=== PATIENT | female | born 1955 | race Caucasian/White ===

== ENCOUNTER 2019-12-21 15:22 | Outpatient (CLI) | payer OTHER, SELFPAY ==
[2019-12-21 15:41] LABS: Basophils Percent Auto 0.5 % (0.2-1.2); Eosinophils Absolute Auto 0.1 K/mm3 (0-0.3); Eosinophils Percent Auto 1.4 % (0-4.4); Hematocrit 36.9 % (37.0-47.0); Hemoglobin 12.1 g/dL (12.0-15.0); Immature Granulocyte Absolute 0.01 K/mm3 (0.00-0.031); Immature Granulocyte Percent A 0.2 % (0-0.5); Lymphocytes Absolute Auto 1.98 K/mm3 (0.9-3.2); Mean Corpuscular HGB Conc 32.8 g/dl (32-36); Mean Corpuscular Hemoglobin 31.8 pg (26-34); Mean Corpuscular Volume 97.1 fl (80-100); Mean Platelet Volume 10.4 fl (7.4-10.4); Monocytes Absolute Auto 0.5 K/mm3 (0.1-0.6); Monocytes Percent Auto 9.1 % (2.6-8.5); Neutrophils Absolute Auto 3.2 K/mm3 (1.3-6.7); Neutrophils Percent Auto 54.8 % (45.5-73.1); Platelet Count Result 175 k/mm3 (150-375); Red Cell Distribution Width 12.7 % (11.5-14.5); White Blood Count 5.8 K/mm3 (4.5-10.0)
[2019-12-21 16:55] LABS: Alanine Aminotransferase 15 U/L (4-35); Albumin Level 4.3 g/dL (3.5-5.1); Alkaline Phosphatase 64 U/L (38-126); Aspartate Amino Transferase 27 U/L (14-36); Bilirubin,Total 0.2 mg/dL (0.2-1.3); Blood Urea Nitrogen 17 mg/dL (7-17); Calcium 9.1 mg/dL (8.4-10.2); Carbon Dioxide 29 mmol/L (22-30); Chloride 105 mmol/L (98-107); Estimated Glomerular Filt Rate > 60; Glucose 111 mg/dL (65-105); Potassium 3.9 mmol/L (3.4-5.0); Sodium 139 mmol/L (137-145)
[2019-12-24 11:50] LABS: CA 27.29 12 U/mL (<38)
== END 2019-12-21 15:23 | disposition home or self-care (01) ==
LOC: ANHLAB 15:23
PROVIDERS: PCP Internal Medicine; Visit Provider Internal Medicine Hematology & Oncology
DX: C50.411 Malignant neoplasm of upper-outer quadrant of right female breast (principal); Z17.0 Estrogen receptor positive status [ER+]
CPT/HCPCS: 36415; 80053; 85025; 86300

== ENCOUNTER 2020-05-05 16:28 | Outpatient (CLI) | payer OTHER, SELFPAY ==
--- NOTE | ~2020-05-05 | XR_ITS ---
XR chest 2V DATE: 05/05/2020 16:51 INDICATION: Shortness of breath TECHNIQUE: PA and lateral views COMPARISON: 03/26/2017 portable AP chest 1112 hours FINDINGS: Left-sided dual-lead pacemaker device with leads overlying right atrium and right ventricle . Heart size is within normal range. There is no hilar or mediastinal enlargement. The lungs are hyperinflated but clear of infiltrate or consolidation. No pleural effusion, pulmonary vascular congestion or pneumothorax. Surgical clips are noted in right breast. Mild thoracic dextro scoliosis and lumbar levoscoliosis. Mild osteopenia is suggested. IMPRESSION: Bilateral hyperinflation; no active cardiopulmonary disease or significant change since Reviewed, dictated and finalized at location A. IMPRESSION: Bilateral hyperinflation; no active cardiopulmonary disease or sign ificant change since 03/26/2017
== END 2020-05-05 16:29 | disposition home or self-care (01) ==
PROVIDERS: PCP Internal Medicine
DX: R00.1 Bradycardia, unspecified (principal); I48.92 Unspecified atrial flutter; Z95.0 Presence of cardiac pacemaker; R06.02 Shortness of breath
CPT/HCPCS: 71046

== ENCOUNTER 2020-05-10 07:38 | Outpatient (CLI) | payer OTHER, SELFPAY ==
--- NOTE | 2020-05-11 17:20 | WPDPFTINT ---
PFT Interpretation PFT Interpretation: DOS: 05/10/2020 REQUESTING: Saúl Wolff DO REASON FOR TESTING: shortness of breath PULMONARY FUNCTION TESTS Results are reliable. No prior studies are available to compare. Spirometry: FEV1 is 84%, 2.14 L. FVC 84%, also normal. The FEV1% is normal. UCZ21-94% is 56%, decreased. No bronchodilator was given. Lung volumes: TLC is 90%, normal. RV is 98% normal. RV/TLC is increased consistent with air trapping. Increased airway resistance. Diffusion: DLCO 70%, mildly decreased. Flow volume loop: Normal. IMPRESSION: Normal spirometry with decreased small airways flows, air trapping which is consistent with an obstructive process, and mild diffusion impairment. No bronchodilator was given. This is a nonspecific pattern. The small airway pattern may reflect asthma. Trial of bronchodilator could be considered. Isolated mild decrease in diffusion may be due to anemia or other condition such as anemia, early ILD, collagen vascular disease with pulmonary vascular involvement or chronic thromboembolic disease. Riana James MD
== END 2020-05-10 07:39 | disposition home or self-care (01) ==
PROVIDERS: PCP Internal Medicine
DX: R00.1 Bradycardia, unspecified (principal); I48.92 Unspecified atrial flutter; R06.02 Shortness of breath; Z95.0 Presence of cardiac pacemaker
CPT/HCPCS: 94375; 94726; 94729

== ENCOUNTER 2020-08-15 07:15 | Outpatient (CLI) | payer OTHER, SELFPAY ==
--- NOTE | ~2020-08-15 | MM_ITS ---
EXAMINATION: MM screening leydi BI w jessica HISTORY: Screening mammogram TECHNIQUE: Craniocaudal and mediolateral oblique 3-D tomosynthesis images were obtained and synthetic 2-D images were generated. CAD analysis was submitted and interpreted. COMPARISON: 05/25/2019 bilateral digital screening mammogram 11/12/2018 diagnostic right digital mammogram 05/14/2018 bilateral diagnostic digital mammogram BREAST PARENCHYMAL COMPOSITION: There are scattered areas of fibroglandular density. FINDINGS: Status post right partial mastectomy for breast malignancy in 2017; surgical clips are note d in the upper outer quadrant of the right breast. There are benign calcifications of fat necrosis in the posterior upper right breast on MLO view. Status post left breast reduction in 2017. There is no evidence of suspicious mass, calcification, or interval architectural distortion to sugge st malignancy in either breast. There has been no suspicious interval change. IMPRESSION: 1. No mammographic evidence of malignancy. 2. Recommend routine screening mammography in one year. BI-RADS Category 2: Benign finding(s). Reviewed, dictated and finalized at location A. CLEANER
== END 2020-08-15 07:16 | disposition home or self-care (01) ==
PROVIDERS: PCP Internal Medicine; Visit Provider Internal Medicine Hematology & Oncology
DX: Z12.31 Encounter for screening mammogram for malignant neoplasm of breast (principal)
CPT/HCPCS: 77063; 77067

== ENCOUNTER 2020-09-09 07:30 | Outpatient (CLI) | payer OTHER, SELFPAY ==
[2020-09-09 07:57] LABS: Alanine Aminotransferase 31 U/L (4-35); Albumin Level 4.2 g/dL (3.5-5.1); Alkaline Phosphatase 70 U/L (38-126); Anion Gap 4 mmol/L (8-16); Aspartate Amino Transferase 39 U/L (14-36); Bilirubin,Total 0.6 mg/dL (0.2-1.3); Blood Urea Nitrogen 18 mg/dL (7-17); Carbon Dioxide 30 mmol/L (22-30); Chloride 106 mmol/L (98-107); Cholesterol 221 mg/dL (0-200); Estimated Glomerular Filt Rate > 60; Glucose 97 mg/dL (65-105); HDL Direct 67 mg/dL; Potassium 4.5 mmol/L (3.4-5.0); Sodium 140 mmol/L (137-145); Triglycerides 135 mg/dL (<150)
[2020-09-09 08:08] LABS: LDL Cholesterol Direct 119 mg/dL
[2020-09-09 08:38] LABS: Vitamin D 25 Hydroxy 47.4 ng/mL
== END 2020-09-09 07:31 | disposition home or self-care (01) ==
LOC: ANHLAB 07:31
PROVIDERS: PCP Internal Medicine; Visit Provider Nurse Practitioner
DX: E78.5 Hyperlipidemia, unspecified (principal); Z78.0 Asymptomatic menopausal state; Z51.81 Encounter for therapeutic drug level monitoring; Z79.899 Other long term (current) drug therapy
CPT/HCPCS: 36415; 80053; 80061; 82306

== ENCOUNTER 2020-09-25 13:31 | Outpatient (CLI) | payer OTHER, SELFPAY ==
[2020-09-25 13:45] LABS: Basophils Absolute Auto 0.1 K/mm3 (0.0-0.1); Basophils Percent Auto 0.8 % (0.2-1.2); Eosinophils Absolute Auto 0.1 K/mm3 (0-0.3); Eosinophils Percent Auto 1.5 % (0-4.4); Hematocrit 38.9 % (37.0-47.0); Hemoglobin 13.2 g/dL (12.0-15.0); Immature Granulocyte Absolute 0.01 K/mm3 (0.00-0.031); Immature Granulocyte Percent A 0.2 % (0-0.5); Lymphocytes Percent Auto 32.1 % (18.3-44.2); Mean Corpuscular HGB Conc 33.9 g/dl (32-36); Mean Corpuscular Hemoglobin 31.4 pg (26-34); Mean Corpuscular Volume 92.4 fl (80-100); Mean Platelet Volume 10.2 fl (7.4-10.4); Monocytes Absolute Auto 0.4 K/mm3 (0.1-0.6); Monocytes Percent Auto 7.1 % (2.6-8.5); Neutrophils Absolute Auto 3.4 K/mm3 (1.3-6.7); Neutrophils Percent Auto 58.3 % (45.5-73.1); Platelet Count Result 229 k/mm3 (150-375); Red Blood Count 4.21 M/mm3 (4.2-5.4); Red Cell Distribution Width 13.1 % (11.5-14.5); White Blood Count 5.9 K/mm3 (4.5-10.0)
[2020-09-25 16:33] LABS: Alanine Aminotransferase 25 U/L (4-35); Albumin Level 4.3 g/dL (3.5-5.1); Alkaline Phosphatase 81 U/L (38-126); Anion Gap 5 mmol/L (8-16); Aspartate Amino Transferase 33 U/L (14-36); Bilirubin,Total 0.3 mg/dL (0.2-1.3); Blood Urea Nitrogen 17 mg/dL (7-17); Calcium 9.6 mg/dL (8.4-10.2); Carbon Dioxide 31 mmol/L (22-30); Chloride 104 mmol/L (98-107); Estimated Glomerular Filt Rate > 60; Glucose 97 mg/dL (65-105); Potassium 3.6 mmol/L (3.4-5.0); Sodium 140 mmol/L (137-145)
[2020-09-27 11:44] LABS: CA 27.29 19 U/mL (<38)
== END 2020-09-25 13:32 | disposition home or self-care (01) ==
PROVIDERS: PCP Internal Medicine; Visit Provider Internal Medicine Hematology & Oncology
DX: C50.411 Malignant neoplasm of upper-outer quadrant of right female breast (principal); Z17.0 Estrogen receptor positive status [ER+]
CPT/HCPCS: 36415; 80053; 85025; 86300

== ENCOUNTER 2020-10-03 07:40 | Outpatient (CLI) | payer OTHER, SELFPAY ==
--- NOTE | ~2020-10-03 | DEXA_ITS ---
Bone Density Report Name: Shy Ayers Age: 65 Sex: Female Ethnicity: White Date of : 1955 Indication: postmenopausal; cancer; hysterectomy; Referring Provider: Юлия Patel Study: Bone densitometry was performed. Exam Date: October 03, 2020 Accession number: [id number] There is hypertrophic degenerative change of the lumbar spine, which results in higher than expected spine bone mineral density measurements. These spine BMD and T score and Z score measurements are not reflective of the patient's true general bone mineral density. Bone Density: Region BMD T-score Z-score Classification AP Spine (L2, L3) 1.093 0.3 2.3 Normal Femoral Neck (Left) 0.816 -0.3 1.3 Normal Total Hip (Left) 0.947 0.0 1.4 Normal Total Hip Bilateral Avg 0.943 0.0 1.4 Normal Femoral Neck (Right) 0.813 -0.3 1.3 Normal Total Hip (Right) 0.937 0.0 1.3 Normal World Health Organization criteria for BMD impression classify patients as: Normal (T-score at or above -1.0), Osteopenia (T-score between -1.0 and -2.5), or Osteoporosis (T-score at or below -2.5). 10-year Fracture Risk: FRAX not reported because: All T-scores for Spine Total, Hip Total, Femoral Neck at or above -1.0 Previous Exams: Region Exam Age BMD T-score BMD Change BMD Change Date g/cm2 vs Baseline vs Previous AP Spine(L2, L3) 10/03/2020 65 1.093 0.3 -0.145(-11.7%) -0.007(-0.7%) 07/10/2018 62 1.100 0.4 -0.137(-11.1%) -0.137(-11.1%) 09/29/2002 47 1.238 1.6 Total Hip(Left) 10/03/2020 65 0.947 0.0 -0.132(-12.2%) -0.001(-0.1%) 07/10/2018 62 0.949 0.1 -0.131(-12.1%) -0.131(-12.1%) 09/29/2002 47 1.079 1.1 Total Hip(Right) 10/03/2020 65 0.937 0.0 -0.084(-8.3%)# -0.015(-1.6%) 07/10/2018 62 0.952 0.1 -0.070(-6.8%)# -0.070(-6.8%)# 09/29/2002 47 1.021 0.7 *Denotes significance at 95% confidence level, LSC for AP Spine = 0.022 g/cm2, LSC for Total Hip = 0.027 g/cm2 Clinical Information Provided by Patient: Has used the following medications: Vitamin D, Calcium Has the following medical conditions: Cancer, Hysterectomy Patient maximum height was 69 Menopause Age: 42 No regular weight bearing exercise Drinks caffeinated beverages Onset of menses at age 10 Number of children 3 Impression: The patient has normal bone mass. No significant bone loss was observed. 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
== END 2020-10-03 07:41 | disposition home or self-care (01) ==
LOC: ANHIMG 07:43
PROVIDERS: PCP Internal Medicine; Visit Provider Nurse Practitioner
DX: D05.11 Intraductal carcinoma in situ of right breast (principal); Z78.0 Asymptomatic menopausal state
CPT/HCPCS: 77080

== ENCOUNTER 2021-02-24 07:02 | Outpatient (CLI) | payer OTHER, SELFPAY ==
[2021-02-24 07:36] LABS: Cholesterol 244 mg/dL (0-200); HDL Direct 66 mg/dL; Triglycerides 127 mg/dL (<150)
[2021-02-24 07:47] LABS: LDL Cholesterol Direct 109 mg/dL
== END 2021-02-24 07:03 | disposition home or self-care (01) ==
PROVIDERS: PCP Internal Medicine; Visit Provider Nurse Practitioner
DX: E78.5 Hyperlipidemia, unspecified (principal)
CPT/HCPCS: 36415; 80061

== ENCOUNTER 2021-06-25 14:31 | Outpatient (CLI) | payer OTHER, SELFPAY ==
[2021-06-25 14:44] LABS: Basophils Absolute Auto 0.1 K/mm3 (0.0-0.1); Eosinophils Absolute Auto 0.2 K/mm3 (0-0.3); Eosinophils Percent Auto 2.4 % (0-4.4); Hematocrit 40.8 % (37.0-47.0); Hemoglobin 13.6 g/dL (12.0-15.0); Immature Granulocyte Absolute 0.01 K/mm3 (0.00-0.031); Immature Granulocyte Percent A 0.2 % (0-0.5); Lymphocytes Absolute Auto 1.89 K/mm3 (0.9-3.2); Lymphocytes Percent Auto 30.1 % (18.3-44.2); Mean Corpuscular HGB Conc 33.3 g/dl (32-36); Mean Corpuscular Hemoglobin 31.1 pg (26-34); Mean Corpuscular Volume 93.2 fl (80-100); Mean Platelet Volume 10.3 fl (7.4-10.4); Monocytes Absolute Auto 0.5 K/mm3 (0.1-0.6); Monocytes Percent Auto 8.3 % (2.6-8.5); Neutrophils Absolute Auto 3.6 K/mm3 (1.3-6.7); Platelet Count Result 237 k/mm3 (150-375); Red Blood Count 4.38 M/mm3 (4.2-5.4); Red Cell Distribution Width 12.6 % (11.5-14.5); White Blood Count 6.3 K/mm3 (4.5-10.0)
[2021-06-25 16:42] LABS: Alanine Aminotransferase 27 U/L (4-35); Albumin Level 4.9 g/dL (3.5-5.1); Alkaline Phosphatase 83 U/L (38-126); Anion Gap 8 mmol/L (8-16); Aspartate Amino Transferase 35 U/L (14-36); Bilirubin,Total 0.5 mg/dL (0.2-1.3); Blood Urea Nitrogen 19 mg/dL (7-17); Calcium 10.3 mg/dL (8.4-10.2); Carbon Dioxide 29 mmol/L (22-30); Chloride 105 mmol/L (98-107); Estimated Glomerular Filt Rate > 60; Glucose 96 mg/dL (65-110); Sodium 142 mmol/L (137-145)
[2021-06-28 04:42] LABS: CA 15-3 10 U/mL (<32)
== END 2021-06-25 14:32 | disposition home or self-care (01) ==
LOC: ANHLAB 14:32
PROVIDERS: PCP Internal Medicine; Visit Provider Internal Medicine Hematology & Oncology
DX: C50.411 Malignant neoplasm of upper-outer quadrant of right female breast (principal); Z17.0 Estrogen receptor positive status [ER+]
CPT/HCPCS: 36415; 80053; 85025; 86300

== ENCOUNTER 2021-08-21 07:22 | Outpatient (CLI) | payer OTHER, SELFPAY ==
--- NOTE | ~2021-08-21 | MM_ITS ---
EXAMINATION: MM screening leydi BI w jessica HISTORY: Screening TECHNIQUE: Craniocaudal and mediolateral oblique 3-D tomosynthesis images were obtained and synthetic 2-D images were generated. CAD analysis was submitted and interpreted. COMPARISON: Comparison to multiple prior studies sequentially, with oldest reviewed study dated 12/16. BREAST PARENCHYMAL COMPOSITION: Breast composed of scattered areas of fibroglandular density FINDINGS: There are surgical changes in the right breast from previous lumpectomy. There is no eviden ce of suspicious mass, calcification, or architectural distortion to suggest malignancy in either hsanna ast. There has been no suspicious interval change. IMPRESSION: 1. No mammographic evidence of malignancy. 2. Recommend routine screening mammography in one year. BI-RADS Category 1: Negative Reviewed, dictated and finalized at location A. NESS EDITOR
== END 2021-08-21 07:23 | disposition home or self-care (01) ==
LOC: ANHIMG 07:26
PROVIDERS: PCP Internal Medicine; Visit Provider Internal Medicine Hematology & Oncology
DX: Z12.31 Encounter for screening mammogram for malignant neoplasm of breast (principal)
CPT/HCPCS: 77063; 77067

== ENCOUNTER 2021-10-05 07:46 | Outpatient (CLI) | payer OTHER, SELFPAY ==
[2021-10-05 10:05] LABS: Cholesterol 193 mg/dL (0-200); HDL Direct 78 mg/dL; Triglycerides 86 mg/dL (<150)
[2021-10-05 10:17] LABS: LDL Cholesterol Direct 86 mg/dL
[2021-10-05 10:21] LABS: Vitamin D 25 Hydroxy 44.5 ng/mL
== END 2021-10-05 07:47 | disposition home or self-care (01) ==
PROVIDERS: Nurse Practitioner; PCP Internal Medicine; Visit Provider Internal Medicine Hematology & Oncology
DX: Z13.21 Encounter for screening for nutritional disorder (principal); E78.5 Hyperlipidemia, unspecified
CPT/HCPCS: 36415; 80061; 82306

== ENCOUNTER 2022-05-27 14:30 | Outpatient (CLI) | payer OTHER, SELFPAY ==
--- NOTE | 2022-05-27 | ECHO_ITS ---
Patient Info Name: Shy Ayers Age: 66 years : 1955 Gender: Female Ht: 69 in Wt: 155 lbs BSA: 1.85 m2 HR: 70 bpm BP: 154 / 90 mmHg Heart Rhythm: Sinus Rhythm Technical Quality: Fair Exam Date: 05/27/2022 2:55 PM Exam Location: [facility] Patient Status: Outpatient Admit Date: 05/27/2022 Staff Ordering Physician: Alfred Figueroa MD Shopper Insights Manager: Mildred Medina RDCS Attending Provider: Alfred Figueroa MD Exam Type: CA echo doppler color flow Study Info Indications - bradycardia, a-flutter, syncope, vasquez Complete two-dimensional, color flow and Doppler transthoracic echocardiogram is performed. Summary 1. Complete two-dimensional, color flow and Doppler transthoracic echocardiogram is performed. 2. Left ventricular chamber dimension is normal. 3. Left ventricular systolic function is normal, estimated at 60-65%. 4. There is mildly increased left ventricular wall thickness. 5. The left ventricular diastolic function is grade I diastolic dysfunction. 6. The mitral valve has thickened leaflets. Mild anterior and mild posterior mitral valve leaflet prolapse. 7. There is trace mitral valve regurgitation. 8. There is trace tricuspid valve regurgitation. 9. No pulmonary hypertension, estimated pulmonary arterial systolic pressure is 30 mmHg. Left Ventricle Left ventricular chamber dimension is normal. Left ventricular systolic function is normal, estimated at 60-65%. There is mildly increased left ventricular wall thickness. The left ventricular diastolic function is grade I diastolic dysfunction. Right Ventricle Right ventricular chamber dimension is normal. Right ventricular systolic function is normal. Linear artifact in right ventricle suggestive of catheter(s), pacemaker lead(s), or ICD lead(s). Left Atria Left atrial chamber dimension is normal. Right Atria Right atrial chamber dimension is normal. Linear artifact in the right atrium suggestive of catheter(s), pacemaker lead(s), or ICD lead(s). Aortic Valve The aortic valve is trileaflet. There is mild aortic valve sclerosis. There is no aortic valve stenosis. There is no aortic valve regurgitation. Pulmonic Valve The pulmonic valve is not well visualized. There is trace pulmonic regurgitation. Mitral Valve The mitral valve has thickened leaflets. Mild anterior and mild posterior mitral valve leaflet prolapse. There is trace mitral valve regurgitation. The mitral valve annulus is mildly calcified. Tricuspid Valve The tricuspid valve leaflets are normal. There is trace tricuspid valve regurgitation. No pulmonary hypertension, estimated pulmonary arterial systolic pressure is 30 mmHg. Pericardium/Pleural The pericardium appears normal. There is trivial pericardial effusion. Inferior Vena Cava Normal inferior vena cava with >50% collapse upon inspiration consistent with normal right atrial pressure, 5 mmHg. Aorta The aortic root size at the sinus of Valsalva is normal. Left Ventricular Outflow Tract Name Value Normal LVOT 2D LVOT Diameter 2.1 cm LVOT Doppler LVOT Peak Gradient
== END 2022-05-27 14:31 | disposition home or self-care (01) ==
LOC: ANHCARD 14:34
PROVIDERS: PCP Internal Medicine
DX: R00.1 Bradycardia, unspecified (principal); Z95.0 Presence of cardiac pacemaker; I48.92 Unspecified atrial flutter; R55 Syncope and collapse; R06.09 Other forms of dyspnea; R06.02 Shortness of breath; R00.2 Palpitations
CPT/HCPCS: 93306

== ENCOUNTER 2022-06-25 13:44 | Outpatient (CLI) | payer OTHER, SELFPAY ==
[2022-06-25 13:59] LABS: Basophils Percent Auto 0.7 % (0.2-1.2); Eosinophils Absolute Auto 0.1 K/mm3 (0-0.3); Eosinophils Percent Auto 1.5 % (0-4.4); Hematocrit 40.8 % (37.0-47.0); Hemoglobin 13.5 g/dL (12.0-15.0); Immature Granulocyte Absolute 0.01 K/mm3 (0.00-0.031); Immature Granulocyte Percent A 0.2 % (0-0.5); Lymphocytes Percent Auto 34.5 % (18.3-44.2); Mean Corpuscular HGB Conc 33.1 g/dl (32-36); Mean Corpuscular Hemoglobin 31.3 pg (26-34); Mean Corpuscular Volume 94.4 fl (80-100); Mean Platelet Volume 9.9 fl (7.4-10.4); Monocytes Absolute Auto 0.5 K/mm3 (0.1-0.6); Monocytes Percent Auto 8.7 % (2.6-8.5); Neutrophils Percent Auto 54.4 % (45.5-73.1); Platelet Count Result 250 k/mm3 (150-375); Red Blood Count 4.32 M/mm3 (4.2-5.4); Red Cell Distribution Width 12.8 % (11.5-14.5); White Blood Count 5.5 K/mm3 (4.5-10.0)
[2022-06-25 14:41] LABS: Alanine Aminotransferase 33 U/L (6-35); Albumin Level 5.1 g/dL (3.5-5.1); Alkaline Phosphatase 99 U/L (38-126); Anion Gap 11 mmol/L (8-16); Aspartate Amino Transferase 43 U/L (14-36); Bilirubin,Total 0.4 mg/dL (0.2-1.3); Blood Urea Nitrogen 16 mg/dL (7-17); Calcium 9.6 mg/dL (8.4-10.2); Carbon Dioxide 29 mmol/L (22-30); Chloride 103 mmol/L (98-107); Estimated Glomerular Filt Rate > 60; Glucose 73 mg/dL (65-110); Potassium 3.6 mmol/L (3.4-5.0); Sodium 143 mmol/L (137-145)
[2022-06-28 04:14] LABS: CA 15-3 10 U/mL (<32)
== END 2022-06-25 13:45 | disposition home or self-care (01) ==
PROVIDERS: PCP Internal Medicine; Visit Provider Internal Medicine Hematology & Oncology
DX: C50.411 Malignant neoplasm of upper-outer quadrant of right female breast (principal); Z17.0 Estrogen receptor positive status [ER+]
CPT/HCPCS: 36415; 80053; 85025; 86300

== ENCOUNTER 2022-09-07 07:12 | Outpatient (CLI) | payer OTHER, SELFPAY ==
[2022-09-07 07:37] LABS: Alanine Aminotransferase 26 U/L (6-35); Albumin Level 4.5 g/dL (3.5-5.1); Alkaline Phosphatase 118 U/L (38-126); Anion Gap 6 mmol/L (8-16); Aspartate Amino Transferase 34 U/L (14-36); Bilirubin,Total 0.5 mg/dL (0.2-1.3); Blood Urea Nitrogen 9 mg/dL (7-17); Calcium 9.4 mg/dL (8.4-10.2); Carbon Dioxide 30 mmol/L (22-30); Chloride 104 mmol/L (98-107); Cholesterol 170 mg/dL (0-200); Estimated Glomerular Filt Rate > 60; Glucose 95 mg/dL (65-110); HDL Direct 60 mg/dL; Potassium 4.3 mmol/L (3.4-5.0); Sodium 140 mmol/L (137-145); Triglycerides 108 mg/dL (<150)
[2022-09-07 07:48] LABS: LDL Cholesterol Direct 68 mg/dL
[2022-09-07 09:14] LABS: Vitamin D 25 Hydroxy 36.1 ng/mL
== END 2022-09-07 07:13 | disposition home or self-care (01) ==
LOC: ANHLAB 07:14
PROVIDERS: PCP Internal Medicine; Visit Provider Nurse Practitioner
DX: E78.5 Hyperlipidemia, unspecified (principal); Z13.21 Encounter for screening for nutritional disorder
CPT/HCPCS: 36415; 80053; 80061; 82306

== ENCOUNTER 2022-09-10 07:17 | Outpatient (CLI) | payer OTHER, SELFPAY ==
--- NOTE | ~2022-09-10 | MM_ITS ---
EXAMINATION: MM screening leydi BI w jessica HISTORY: Screening mammogram, history of right breast cancer TECHNIQUE: Craniocaudal and mediolateral oblique 3-D tomosynthesis images were obtained and synthetic 2-D images were generated. CAD analysis was submitted and interpreted. COMPARISON: 08/21/2021, 08/15/2020, 05/25/2019, 11/12/2018 BREAST PARENCHYMAL COMPOSITION: There are scattered areas of fibroglandular density. FINDINGS: There are stable lumpectomy changes of the right breast. No suspicious mass, calcification, or architectural distortion are identified in either breast to suggest malignancy. There has been no suspicious interval change. IMPRESSION: 1. No mammographic evidence of malignancy. 2. Recommend routine screening mammography in one year. BI-RADS Category 2: Benign finding(s). Reviewed, dictated and finalized at location A. ORIZER OPERATOR
== END 2022-09-10 07:18 | disposition home or self-care (01) ==
LOC: ANHIMG 07:18
PROVIDERS: PCP Internal Medicine; Visit Provider Internal Medicine Hematology & Oncology
DX: Z12.31 Encounter for screening mammogram for malignant neoplasm of breast (principal)
CPT/HCPCS: 77063; 77067

== ENCOUNTER 2023-04-16 07:03 | Outpatient (CLI) | payer OTHER, SELFPAY ==
[2023-04-16 09:07] LABS: Alanine Aminotransferase 23 U/L (6-35); Albumin Level 4.5 g/dL (3.5-5.1); Alkaline Phosphatase 76 U/L (38-126); Anion Gap 6 mmol/L (8-16); Aspartate Amino Transferase 33 U/L (14-36); Bilirubin,Total 0.5 mg/dL (0.2-1.3); Blood Urea Nitrogen 13 mg/dL (7-17); Calcium 9.7 mg/dL (8.4-10.2); Carbon Dioxide 30 mmol/L (22-30); Chloride 104 mmol/L (98-107); Cholesterol 184 mg/dL (0-200); Estimated Glomerular Filt Rate > 60; Glucose 81 mg/dL (65-110); HDL Direct 80 mg/dL; Potassium 4.2 mmol/L (3.4-5.0); Sodium 140 mmol/L (137-145); Triglycerides 103 mg/dL (<150)
[2023-04-16 09:19] LABS: LDL Cholesterol Direct 78 mg/dL
== END 2023-04-16 07:04 | disposition home or self-care (01) ==
PROVIDERS: PCP Family Medicine; Visit Provider Nurse Practitioner
DX: E78.5 Hyperlipidemia, unspecified (principal)
CPT/HCPCS: 36415; 80053; 80061

== ENCOUNTER 2023-06-25 13:42 | Outpatient (CLI) | payer OTHER, SELFPAY ==
[2023-06-25 14:04] LABS: Basophils Absolute Auto 0.1 K/mm3 (0.0-0.1); Basophils Percent Auto 1.1 % (0.2-1.2); Eosinophils Absolute Auto 0.1 K/mm3 (0-0.3); Eosinophils Percent Auto 1.6 % (0-4.4); Hematocrit 39.7 % (37.0-47.0); Hemoglobin 13.2 g/dL (12.0-15.0); Immature Granulocyte Absolute 0.01 K/mm3 (0.00-0.031); Immature Granulocyte Percent A 0.2 % (0-0.5); Lymphocytes Absolute Auto 2.09 K/mm3 (0.9-3.2); Lymphocytes Percent Auto 34.1 % (18.3-44.2); Mean Corpuscular HGB Conc 33.2 g/dl (32-36); Mean Corpuscular Hemoglobin 31.6 pg (26-34); Mean Platelet Volume 9.8 fl (7.4-10.4); Monocytes Absolute Auto 0.4 K/mm3 (0.1-0.6); Monocytes Percent Auto 6.9 % (2.6-8.5); Neutrophils Absolute Auto 3.4 K/mm3 (1.3-6.7); Neutrophils Percent Auto 56.1 % (45.5-73.1); Platelet Count Result 259 k/mm3 (150-375); Red Blood Count 4.18 M/mm3 (4.2-5.4); Red Cell Distribution Width 12.7 % (11.5-14.5); White Blood Count 6.1 K/mm3 (4.5-10.0)
[2023-06-25 17:12] LABS: Alanine Aminotransferase 26 U/L (6-35); Albumin Level 4.7 g/dL (3.5-5.1); Alkaline Phosphatase 84 U/L (38-126); Anion Gap 7 mmol/L (8-16); Aspartate Amino Transferase 36 U/L (14-36); Bilirubin,Total 0.5 mg/dL (0.2-1.3); Blood Urea Nitrogen 18 mg/dL (7-17); Calcium 9.9 mg/dL (8.4-10.2); Carbon Dioxide 30 mmol/L (22-30); Chloride 102 mmol/L (98-107); Estimated Glomerular Filt Rate 55; Glucose 97 mg/dL (65-110); Potassium 3.9 mmol/L (3.4-5.0); Sodium 139 mmol/L (137-145)
[2023-06-28 06:02] LABS: CA 15-3 10 U/mL (<32)
== END 2023-06-25 13:43 | disposition home or self-care (01) ==
PROVIDERS: PCP Family Medicine; Visit Provider Internal Medicine Hematology & Oncology
DX: C50.411 Malignant neoplasm of upper-outer quadrant of right female breast (principal); Z17.0 Estrogen receptor positive status [ER+]
CPT/HCPCS: 36415; 80053; 85025; 86300

== ENCOUNTER 2023-07-01 08:26 | Outpatient (CLI) | payer OTHER, SELFPAY ==
[2023-07-01 10:54] LABS: Appearance Urine Clear (Clear); Bacteria Urine None Seen /hpf; Bilirubin Urine Negative (Negative); Blood Urine Negative (Negative); Color Urine Yellow (Yellow); Glucose Urine UA Negative (Negative); Ketones Urine Negative (Negative); Leukocyte Esterase Ur Trace LEU/UL (NEGATIVE); Need Manual Microscopic Reviewed; Nitrate Urine Negative (Negative); Non Pathogenic Casts 0-2; Protein Urine Negative (Negative); RBC Urine 0-2 /hpf (0-2); Specific Grav Ur 1.004 (1.001-1.035); Squamous Epithelial Cell Urine None seen /hpf (Few); Urobilinogen Urine 0.2 mg/dL (<2.0); WBC Urine 0-5 /hpf (0-3); pH Urine 6.5 (5.0-9.0)
[2023-07-01 10:55] LABS: Add Urine Microscopic? YES
== END 2023-07-01 08:27 | disposition home or self-care (01) ==
LOC: ANHLAB 08:28
PROVIDERS: PCP Family Medicine; Visit Provider Internal Medicine Hematology & Oncology
DX: M54.50 Low back pain, unspecified (principal)
CPT/HCPCS: 81001

== ENCOUNTER 2023-12-15 13:49 | Outpatient (CLI) | payer MEDICARE, SELFPAY ==
--- NOTE | ~2023-12-15 | MM_ITS ---
EXAMINATION: MM screening leydi BI w jessica HISTORY: Screening mammogram TECHNIQUE: Craniocaudal and mediolateral oblique 3-D tomosynthesis images were obtained and synthetic 2-D images were generated. CAD analysis was submitted and interpreted. COMPARISON: 09/10/2022, 08/21/2021 bilateral screening mammogram examinations BREAST PARENCHYMAL COMPOSITION: There are scattered areas of fibroglandular density. FINDINGS: Status post right partial mastectomy and radiotherapy for breast cancer. Right breast biopsy marker. Left breast biopsy marker. There is no evidence of suspicious mass, calcification, or new architectural distortion to suggest m alignancy in either breast. There has been no suspicious interval change. IMPRESSION: 1. Status post right partial mastectomy and radiotherapy for breast cancer. No mammographic evidence of malignancy. 2. Recommend routine screening mammography in one year. BI-RADS Category 2: Benign finding(s). Reviewed, dictated and finalized at location A.
--- NOTE | ~2023-12-15 | DEXA_ITS ---
Bone Density Report Name: BRIGID MUELLER Age: 68 Sex: Female Ethnicity: White Date of : 1955 Indication: postmenopausal; screening for osteoporosis; height loss; cancer; asthma or emphysema; hysterectomy; Referring Provider: FLORENTINO WOO Study: Bone densitometry was performed. Exam Date: December 15, 2023 Accession number: [id number] Bone Density: Region BMD T-score Z-score Classification AP Spine(L2, L3, L4) 1.114 0.3 2.5 Normal Femoral Neck (Left) 0.754 -0.9 1.0 Normal Total Hip (Left) 0.836 -0.9 0.7 Normal Femoral Neck (Right) 0.771 -0.7 1.1 Normal Total Hip (Right) 0.837 -0.9 0.7 Normal Total Hip Mean 0.836 -0.9 0.7 Normal World Health Organization criteria for BMD impression classify patients as: Normal (T-score at or above -1.0), Osteopenia (T-score between -1.0 and -2.5), or Osteoporosis (T-score at or below -2.5). 10-year Fracture Risk: FRAX not reported because: All T-scores for Spine Total, Hip Total, Femoral Neck at or above -1.0 Previous Exams: Region Exam Age BMD T-score BMD Change BMD Change Date g/cm2 vs Baseline vs Previous Total Hip(Left) 12/15/2023 68 0.836 -0.9 -0.112 (-11.9% -0.111 (-11.7% 10/03/2020 65 0.947 0.0 -0.001 (-0.1%) -0.001 (-0.1%) 07/10/2018 62 0.949 0.1 Total Hip(Right) 12/15/2023 68 0.837 -0.9 -0.115 (-12.1% -0.101 (-10.7% 10/03/2020 65 0.937 0.0 -0.015 (-1.6%) -0.015 (-1.6%) 07/10/2018 62 0.952 0.1 *Denotes significance at 95% confidence level, LSC for Total Hip = 0.027 g/cm2 # Denotes dissimilar scan types or analysis methods Clinical Information Provided by Patient: Has used the following medications: MULTI Has the following medical conditions: Asthma or Emphysema, Cancer, Hysterectomy Patient maximum height was 69 Menopause Age: 42 No regular weight bearing exercise Drinks caffeinated beverages Onset of menses at age 9 Number of children 3 Impression: The patient has normal bone mass. No significant bone loss was observed. Discussion: BONE DENSITY IS ABOVE THE MINIMUM DESIRABLE LEVEL AT ALL SKELETAL SITES TESTED. This patient?s bone mineral density is above the minimum desirable level (T-score -1.0 or better) at all sites measured. The patient should follow a healthful lifestyle (good nutrition with adequate calcium and vitamin D, and appropriate weight-bearing exercise). Follow-Up: Consider repeating this study in 5 years or sooner if there is some new clinical indication. Repo
== END 2023-12-15 13:50 | disposition home or self-care (01) ==
LOC: ANHIMG 13:52
PROVIDERS: PCP Family Medicine; Visit Provider Internal Medicine Hematology & Oncology
DX: Z12.31 Encounter for screening mammogram for malignant neoplasm of breast (principal); M85.89 Other specified disorders of bone density and structure, multiple sites; Z78.0 Asymptomatic menopausal state
CPT/HCPCS: 77063; 77067; 77080

== ENCOUNTER 2024-02-03 08:24 | Outpatient (CLI) | payer MEDICARE, SELFPAY ==
[2024-02-03 08:08] LABS: Hematocrit 40.9 % (37.0-47.0); Hemoglobin 13.6 g/dL (12.0-15.0); Mean Corpuscular HGB Conc 33.3 g/dl (32-36); Mean Corpuscular Hemoglobin 31.9 pg (26-34); Mean Platelet Volume 9.9 fl (7.4-10.4); Platelet Count Result 226 k/mm3 (150-375); Red Blood Count 4.26 M/mm3 (4.2-5.4); Red Cell Distribution Width 12.7 % (11.5-14.5); White Blood Count 4.5 K/mm3 (4.5-10.0)
[2024-02-03 08:31] LABS: Alanine Aminotransferase 21 U/L (6-35); Albumin Level 4.7 g/dL (3.5-5.1); Alkaline Phosphatase 75 U/L (38-126); Anion Gap 6 mmol/L (4-12); Aspartate Amino Transferase 31 U/L (14-36); Bilirubin,Total 0.7 mg/dL (0.2-1.3); Blood Urea Nitrogen 14 mg/dL (7-17); Calcium 9.8 mg/dL (8.4-10.2); Carbon Dioxide 27 mmol/L (22-30); Chloride 107 mmol/L (98-107); Cholesterol 180 mg/dL (0-200); Estimated Glomerular Filt Rate > 60; Glucose 95 mg/dL (65-110); HDL Direct 83 mg/dL; Potassium 4.3 mmol/L (3.4-5.0); Sodium 140 mmol/L (137-145); Triglycerides 84 mg/dL (<150)
[2024-02-03 08:42] LABS: LDL Cholesterol Direct 75 mg/dL
== END 2024-02-03 08:25 | disposition home or self-care (01) ==
PROVIDERS: PCP Family Medicine; Visit Provider Family Medicine
DX: E78.5 Hyperlipidemia, unspecified (principal); Z00.00 Encounter for general adult medical examination without abnormal findings
CPT/HCPCS: 36415; 80053; 80061; 85027

== ENCOUNTER 2024-08-11 07:09 | Outpatient (CLI) | payer MEDICARE, SELFPAY ==
[2024-08-11 07:54] LABS: Hematocrit 39.6 % (37.0-47.0); Hemoglobin 13.3 g/dL (12.0-15.0); Mean Corpuscular HGB Conc 33.6 g/dl (32-36); Mean Corpuscular Hemoglobin 31.9 pg (26-34); Mean Platelet Volume 10.2 fl (7.4-10.4); Platelet Count Result 212 k/mm3 (150-375); Red Blood Count 4.17 M/mm3 (4.2-5.4); Red Cell Distribution Width 12.7 % (11.5-14.5)
[2024-08-11 08:08] LABS: Alanine Aminotransferase 17 U/L (6-35); Albumin Level 4.4 g/dL (3.5-5.1); Alkaline Phosphatase 74 U/L (38-126); Anion Gap 4 mmol/L (4-12); Aspartate Amino Transferase 29 U/L (14-36); Bilirubin,Total 0.5 mg/dL (0.2-1.3); Blood Urea Nitrogen 14 mg/dL (7-17); CRP < 0.5 mg/dL (<1.0); Calcium 9.8 mg/dL (8.4-10.2); Carbon Dioxide 29 mmol/L (22-30); Chloride 107 mmol/L (98-107); Estimated Glomerular Filt Rate > 60; Glucose 90 mg/dL (65-110); Potassium 4.1 mmol/L (3.4-5.0); Sodium 140 mmol/L (137-145)
[2024-08-11 08:32] LABS: Erythrocyte Sedimentation Rate 13 mm/hr (0-20)
== END 2024-08-11 07:10 | disposition home or self-care (01) ==
LOC: ANHLAB 07:12
PROVIDERS: PCP Family Medicine; Visit Provider Family Medicine
DX: E78.5 Hyperlipidemia, unspecified (principal); I48.92 Unspecified atrial flutter; R53.83 Other fatigue; Z95.0 Presence of cardiac pacemaker; Z85.3 Personal history of malignant neoplasm of breast
CPT/HCPCS: 36415; 80053; 84443; 85027; 85652; 86140

== ENCOUNTER 2024-09-21 14:56 | Outpatient (CLI) | payer MEDICARE, SELFPAY ==
[2024-09-21 15:07] LABS: Basophils Absolute Auto 0.1 K/mm3 (0.0-0.1); Basophils Percent Auto 0.8 % (0.2-1.2); Eosinophils Absolute Auto 0.1 K/mm3 (0-0.3); Eosinophils Percent Auto 1.3 % (0-4.4); Hematocrit 38.9 % (37.0-47.0); Hemoglobin 13.1 g/dL (12.0-15.0); Immature Granulocyte Absolute 0.01 K/mm3 (0.00-0.031); Immature Granulocyte Percent A 0.2 % (0-0.5); Lymphocytes Absolute Auto 2.38 K/mm3 (0.9-3.2); Lymphocytes Percent Auto 39.9 % (18.3-44.2); Mean Corpuscular HGB Conc 33.7 g/dl (32-36); Mean Corpuscular Volume 94.9 fl (80-100); Mean Platelet Volume 9.8 fl (7.4-10.4); Monocytes Absolute Auto 0.6 K/mm3 (0.1-0.6); Monocytes Percent Auto 9.9 % (2.6-8.5); Neutrophils Absolute Auto 2.9 K/mm3 (1.3-6.7); Neutrophils Percent Auto 47.9 % (45.5-73.1); Platelet Count Result 227 k/mm3 (150-375); Red Cell Distribution Width 12.4 % (11.5-14.5)
--- OUTSIDE RECORDS SUMMARY | 2024-09-21 15:27 | XMS_ITS | Patient Health Summary ---
Author Organization [facility] Address [address] [place] [address] Care Team Providers Care Communication Center Operator Name Role Phone Babar Steiner MD Primary Care Provider [phone] Note from [facility],non-owned Affiliates and Associated Physician Practices is amultiple site organization consisting of ambulatory clinics and hospital sitesin [place], [place], [place] and [place]. This disclosure is being madepursuant to the Care Everywhere program and may not contain all information available regarding this patient. Last updated 18.[facility] Social History Tobacco Use Types Packs/Day Years Used Date Smoking Tobacco: Never Assessed Sex and Gender Information Value Date Recorded Sex Assigned at Not on file Gender Identity Not on file Sexual Orientation Not on file Care Teams Communication Center Operator Relationship Specialty Start Date End Date Babar Steiner MD [address] [facility] [address] [place] [address] PCP - General 09/24/17
--- OUTSIDE RECORDS SUMMARY | 2024-09-21 15:27 | XMS_ITS | Clinical Summary ---
Author Organization [facility] Address [address] [facility] [address] [place] [address] Phone Care Team Providers Care Sanitation Truck Driver Name Role Phone Babar Steiner MD Primary Care Provider [phone] Jacky Perry DO Unavailable [phone] 3 Allergies No known active allergies Medications polyethylene glycol (MIRALAX) Powder Use entire 255g bottle with 64oz of clear liquid as directed for colonoscopy prep. 255 g 0 7 Active Immunizations Immunization Administration Dates Next Due Covid-19, Mrna, Lnp-s, Pf, 30 Mcg/0.3 Ml Dose (P fizer) 09/01/2020,08/11/2020 Family History Medical History Relation Name Comments Cancer Father Hypertension Father Breast Cancer Mother Relation Name Status Comments Father Mother Social History Tobacco Use Types Packs/Day Years Used Date Smoking Tobacco: Never Smokeless Tobacco: Never Alcohol Use Standard Drinks/Week Comments Yes 2 (1 standard drink = 0.6 oz pur e alcohol) Comments Unknown Sex and Gender Information Value Date Recorded Sex Assigned at Not on file Legal Sex Female 2:57 AM TRANSMISSION ENGINEER Gender Identity Not on file Sexual Orientation Not on file Plan of Treatment Health Maintenance Due Date Last Done Comments DEXA Bone Density 1955 Hepatitis C Virus (HCV) Screening 1955 TdaP Immunization 1955 Mammogram 1993 Cologuard 2003 Immunochemical Fecal Occult Blood 2003 Zoster Immunization (1 of 2) 2003 Pneumococcal Immunization (5 0+ years) (2 of 2 - PPSV23) 10/03/2019 10/03/2018 Influenza Immunization (#1) 2024 SARS-COV-2 Immunization ( season) 2024 06/01/2021, 09/01/2020, 08/11/2020 Colonoscopy 01/13/2027 01/13/2017, 01/13/2017 Colorectal Cancer Screening 01/13/2027 Respiratory Syncytial Virus (RSV) Immunization (Adult) (1 - 1-dose 75+ series) 2028 01/13/2017, 01/13/2017 Pneumococcal Immunization Combined Discontinued 10/03/2018 Hepatitis B Immunization Aged Out No longer eligible based on patient's age to complete this topic Meningococcal Immunization (ACWY) Aged Out No longer eligible based on patient's age to complete this topic Rotavirus Immunization Aged Out No lo nger eligible based on patient's age to complete this topic Procedures Procedure Name Priority Date/Time Associated Diagnosis Comments COLONOSCOPY Routine 01/13/2017 from Last 3 Months or Most Recently Relevant to Health Maintenance Results * COLONOSCOPY (01/13/2017) Narrative Amy Merrill - 01/13/2017 Created in error by HIM[facility] Jacky Perry DO PROCEDURE/MINOR SURGICAL ORDERA BLES Edited Result - Final from Last 3 Months or Most Recently Relevant to Health Maintenance Insurance [place] [address] Care Teams Sanitation Truck Driver Relationship Specialty Start Date End Date Babar Steiner MD [address] [facility] [address] [place] [address] PCP - General Internal Medicine 09/17/16 Jacky Perry DO [address] [facility] [address] [place] [address] Consulting Physician Gastroenterology 01/13/17
--- OUTSIDE RECORDS SUMMARY | 2024-09-21 15:27 | XMS_ITS | Encounter Summary ---
Author Organization [facility] Address [address] [place] [address] Care Team Providers Care Tire Cord Weaver Name Role Phone Darwin Bond MD Primary Care Provider [phone] Encounter Details Date Type Department Care Team (Late Contact Info) Description 01/30/2018 Chart Note [facility] Radiation Therapy [address] [place] [address] [place] [address] [place] [address] Social History Tobacco Use Types Packs/Day Years Used Date Smoking Tobacco: Never Smokeless Tobacco: Never Alcohol Use Standard Drinks/Week Comments Yes 1 (1 standard drink = 0.6 oz pur e alcohol) Comments No Sex and Gender Information Value Date Recorded Sex Assigned at Female 07/16/2024 9:01 AM COIL INSPECTOR Legal Sex Female 8:57 AM CDT Gender Identity Female 07/16/2024 9:01 AM COIL INSPECTOR Sexual Orientation Straight 07/16/2024 9: 01 AM COIL INSPECTOR documented as of this encounter Plan of Treatment Upcoming Encounters Date Type Department Care Team (Late st Contact Info) Description 09/29/2024 2:45 PM COIL INSPECTOR Office Visit [facility] Oncology and Hematology - [place] [address] [place] [address] Gume Henriquez MD [address] [place] [address] documented as of this encounter Visit Diagnoses Not on filedocumented in this encounter Care Teams Tire Cord Weaver Relationship Specialty Start Date End Date Darwin Bond MD [address] [place] [id number] PCP - General Family Practice 07/02/23 documented as of this encounter
--- OUTSIDE RECORDS SUMMARY | 2024-09-21 15:27 | XMS_ITS | Clinical Summary ---
Author Organization [facility] Address [address] [address] Care Team Providers Care Supervisor Insecticide Name Role Phone Babar Steiner MD Primary Care Provider [phone] Source Comments [facility],non-owned Affiliates and Associated Physician Practices is amultiple site organization consisting of ambulatory clinics and hospital sitesin [place], [place], [place] and [place]. This disclosure is being madepursuant to the Care Everywhere program and may not contain all information available regarding this patient. Last updated 18.[facility] Social History Tobacco Use Types Packs/Day Years Used Date Smoking Tobacco: Never Assessed Sex and Gender Information Value Date Recorded Sex Assigned at Not on file Gender Identity Not on file Sexual Orientation Not on file Plan of Treatment Health Maintenance Due Date Last Done Comments BONE DENSITY TESTING 1955 COLOGUARD (AGES 45-75) - COL ON CA SCREENING 1955 COLON MONITORING 1955 COLONOSCOPY - COLON CA SCREENING 1955 CT COLONOGRAPHY - COLON CA SCREENING 1955 Colorectal Cancer Screening 1955 FIT - COLON CA SCREENING 1955 FLEX SIG - COLON CA SCREENING 1955 LIPID TESTING 1955 MAMMOGRAM 1955 HEPATITIS C SCREENING 07/20/1971 DTAP/TDAP/TD VACCINES (1 - Tdap) 1972 PNEUMOCOCCAL VACCINE 50+ (1 of 1 - PCV) 2003 ZOSTER VACCINE (1 of 2) 2003 COVID-19 VACCINE ( - 2023-2 5 season) 2024 INFLUENZA VACCINE (#1) 2024 DEPRESSION SCREENING 08/25/2024 Respiratory Syncytial Virus (RSV) Vaccine Pt: or over 60 yrs (1 - 1-dose 75+ series) 2028 HEPATITIS B VACCINE Aged Out No longe r eligible based on patient's age to complete this topic HIB VACCINE Aged Out No longer eligi ble based on patient's age to complete this topic HPV VACCINE Aged Out No longer eligi ble based on patient's age to complete this topic MENINGOCOCCAL (Group B) VACCINE Aged Out No longer eligible based on patient's age to complete this topic MENINGOCOCCAL VACCINE Aged Out No danica azra eligible based on patient's age to complete this topic Care Teams Supervisor Insecticide Relationship Specialty Start Date End Date Babar Steiner MD [address] [facility] [address] [place] [address] PCP - General 09/24/17
--- OUTSIDE RECORDS SUMMARY | 2024-09-21 15:27 | XMS_ITS | Referral Summary ---
Author Organization [facility] Address [address] [place] [address] Care Team Providers Care Outside Laborer Name Role Phone Babar Steiner MD Primary Care Provider [phone] Source Comments [facility],non-owned Affiliates and Associated Physician Practices is amultiple site organization consisting of ambulatory clinics and hospital sitesin [place], [place], [place] and [place]. This disclosure is being madepursuant to the Care Everywhere program and may not contain all information available regarding this patient. Last updated 18.[facility] Social History Tobacco Use Types Packs/Day Years Used Date Smoking Tobacco: Never Assessed Sex and Gender Information Value Date Recorded Sex Assigned at Not on file Gender Identity Not on file Sexual Orientation Not on file Plan of Treatment Not on file Care Teams Outside Laborer Relationship Specialty Start Date End Date Babar Steiner MD [address] [facility] [address] [place] [address] PCP - General 09/24/17
--- OUTSIDE RECORDS SUMMARY | 2024-09-21 15:27 | XMS_ITS | CONTINUITY OF CARE DOCUMENT ---
Author Name doug camacho Address Unknown Organization [facility] Address [address] [place] [address] Phone [phone] Care Team Providers Care Manager Compensation Name Role Phone Alfred Figueroa MD Unavailable VIRGILIO DO, FUAD Unavailable [phone] VIRGILIO , FUAD Unavailable [phone] PROBLEMS Condition Status Date Provider Notes Bradycardia sinus active Marcela Robb Atrial flutter; inducable & ablated active Marcela Lance RN Shortness of breath active Marcela Lance RN Accelerated junctional rhythm; DCPM scheduled active Marcela Lance RN Palpitations, recurrent completed - Natacha Koehler NP Dyspnea on exertion completed - Natacha Koehler NP Syncope (near) completed - Natacha Koehler NP Chest pain, intermittent active Gaby salcedo [employer] Fatigue active Kodak Ahmedzai Essential hypertension active Kodak Ahmedzai Carotid bruit active Kodak Ahmedzai Cardiology examination active Kodak Olea 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 Saúl Wolff DO ENCOUNTERS Date Type Provider Location Encounter Diag nosis - In-person encounter Office Visit Alfred Figueroa MD [facility] Cardiology examinationCarotid bruit - In-person encounter Office Visit Alfred Figueroa MD [place] [facility] - In-person encounter Office Visit Alfred Figueroa MD [facility] FatigueEssential hypertension - In-person encounter Office Visit Alfred Figueroa MD [facility] Chest pain, intermittent - In-person encounter Office Visit Alfred Figueroa MD [facility] Palpitations, recurrentDyspnea on exertionSyncope (near) - In-person encounter Office Visit Saúl Wolff DO [facility] Office - In-person encounter Office Visit Saúl Wolff DO [facility] Office Status Post Biotronik dual chamber (MRI Safe) pacemaker - In-person encounter Office Visit Saúl Solanock [facility] Office - [facility] Saúl [facility] Office - In-person encounter Office Visit Saúl [facility] Office - [facility] Visit Saúl Wolff [facility] Office Status Post Biotronik dual chamber (MRI Safe) pacemaker - In-person encounter [facility] Office Visit Saúl [facility] VITAL SIGNS Date Observation Value Provider Body Mass Index (Ratio) 20.67 kg/m2 Kodak Olea blood pressure, diastolic 70 mm[Hg] Tashia Dejesus blood pressure, systolic 111 mm[Hg] Janee Dejesus oxygen saturation, oximetry 94 % Janell Dejesus pulse rate 60 /min Janell Dejesus respiratory rate E&M 12 /min Janell Dejesus weight E&M 140 [lb_av] Janell Dejesus height E&M 69 [in_i] Janell Dejesus blood pressure, cuff size regular Tashia Dejesus Body Mass Index (Ratio) 22.15 kg/m2 Kodak anthony blood pressure, cuff size regular [facility], diastolic 83 mm[Hg] Ja et blood pressure, systolic 137 mm[Hg] Jami ret pulse rate 99 /min Steve respiratory rate E&M 12 /min Steve oxygen saturation, oximetry 100 % Steve weight E&M 150 [lb_av] Steve y height E&M 69 [in_i] Steve y Body Mass Index (Ratio) 23.03 kg/m2 Kodak anthonypedrito blood pressure, diastolic 77 mm[Hg] Ri garrett Melton blood pressure, systolic 149 mm[Hg] Dean james [place] blood pressure, cuff size regular Elba Melton oxygen saturation, oximetry 97 % Seble Melton respiratory rate E&M 16 /min Santosesperanza norton Melton pulse rate 68 /min Seble Barba son weight E&M 156 [lb_av] Seble Barba son height E&M 69 [in_i] Seble flores Body Mass Index (Ratio) 23.18 kg/m2 Kodak [facility] blood pressure, diastolic 90 mm[Hg] Mi garrett [place] blood pressure, systolic 161 mm[Hg] Rodney ramirez [place] oxygen saturation, oximetry 98 % Gloria [place] pulse rate 76 /min Gloria Herzog rhona weight E&M 157 [lb_av] Gloria Herzog rhona respiratory rate E&M 16 /min Nubia norton [place] blood pressure, cuff size large Sruthi tucker [place] height E&M 69 [in_i] Gloria [facility] Body Mass Index (Ratio) 23.63 kg/m2 Jesus Figueroa MD blood pressure, cuff size large Ke rri Gru[facility]st [facility] blood pressure, diastolic 86 mm[Hg] Ke rri Gruenenfeldbernice blood pressure, systolic 152 mm[Hg] Bernice ri Mihai oxygen saturation, oximetry 97 % Elizabeth Mihai respiratory rate E&M 16 /min Elizabeth Lon anthony pulse rate 71 /min Elizabeth Rosalbae [facility] weight E&M 160 [lb_av] Elizabeth Kirannenfe [facility] height E&M 69 [in_i] Elizabeth Kirannenfe [facility] Body Mass Index (Ratio) 23.48 kg/m2 Denclive is [place] DO blood pressure, diastolic 70 mm[Hg] Rh onda Alecia blood pressure, systolic 130 mm[Hg] Rho nda Alecia oxygen saturation, oximetry 98 % Dolores Alston blood pressure, cuff size regular Rh rishi Alston respiratory rate E&M 16 /min Dolores Alston pulse rate 70 /min Dolores Alston weight E&M 159 [lb_av] Dolores Alston height E&M 69 [in_i] Dolores Alston Body Mass Index (Ratio) 23.63 kg/m2 Denn is [place] DO blood pressure, diastolic 80 mm[Hg] Vu isty Alfonzo blood pressure, systolic 118 mm[Hg] Kri sty [place] blood pressure, cuff size regular Vu isjoelle [place] oxygen saturation, oximetry 95 % Yvette Alfonzo pulse rate 89 /min Yvette [place] respiratory rate E&M 17 /min Yvette [place] weight E&M 160 [lb_av] Yvette [place] height E&M 69 [in_i] Yvette [place] Body Mass Index (Ratio) 23.33 kg/m2 Denn is [place] DO blood pressure, diastolic 70 mm[Hg] Vu browne Alfonzo blood pressure, systolic 120 mm[Hg] Krpedrito stvladislav Alfonzo oxygen saturation, oximetry 98 % Yvette Alfonzo pulse rate 70 /min Yvette [place] respiratory rate E&M 16 /min Yvette Alfonzo blood pressure, cuff size regular Vu browne [place] weight E&M 158 [lb_av] Yvette [place] height E&M 69 [in_i] Yvette Alfonzo Body Mass Index (Ratio) 24.22 kg/m2 Denn is [place] blood pressure, diastolic 62 mm[Hg] Te onia Izabella blood pressure, systolic 110 mm[Hg] Myles beata Izabella oxygen saturation, oximetry 95 % Teonia Izabella pulse rate 70 /min Teonia Izabella respiratory rate E&M 18 /min Teonia Izabella weight E&M 164 [lb_av] Teonia Izabella height E&M 69 [in_i] Teonia Izabella Body Mass Index (Ratio) 23.63 kg/m2 Denn is [place] DO Body Mass Index (Ratio) 23.63 kg/m2 Denn is [place] DO blood pressure, cuff size large Jess Lawson blood pressure, diastolic 60 mm[Hg] Jess Lawson blood pressure, systolic 110 mm[Hg] Ashu Lawson pulse rate 86 /min Tila Lawson respiratory rate E&M 16 /min Tila Lawson oxygen saturation, oximetry 97 % Tila Lawson weight E&M 160 [lb_av] Tila Lawson height E&M 69 [in_i] Tila Lawson blood pressure, cuff size regular Jess Lawson blood pressure, diastolic 74 mm[Hg] Jess Lawson blood pressure, systolic 111 mm[Hg] Ashu Lawson oxygen saturation, oximetry 97 % Tila Lawson respiratory rate E&M 16 /min Tila Lawson pulse rate 75 /min Tila Lawson weight E&M 160 [lb_av] Tila Lawson height E&M 69 [in_i] Tila Lawson Body Mass Index (Ratio) 23.27 kg/m2 Denn is [facility] blood pressure, resting Yes Vijaya Castañeda blood pressure, cuff size regular Te rachel Maddy blood pressure, diastolic 68 mm[Hg] Te rachel Maddy blood pressure, systolic 110 mm[Hg] Ten neetu Maddy oxygen saturation, oximetry 95 % Irina Maddy respiratory rate E&M 18 /min Irina Maddy pulse rate 108 /min Irina Maddy weight E&M 157.6 [lb_av] Irina loomis blood pressure, diastolic 60 mm[Hg] Nessa Lance RN blood pressure, systolic 110 mm[Hg] Yvonne Lance RN pulse rate 88 /min Marcela Lance RN oxygen saturation, oximetry 98 % Marcela Lance RN respiratory rate E&M 20 /min Marcela bonilla RN Body Mass Index (Ratio) 23.74 kg/m2 Marcela Lance RN weight E&M 160.8 [lb_av] Marcela Lance blood pressure, diastolic, standing 70 mm [Hg] Yvette Chingby blood pressure, systolic, standing 118 mm [Hg] Yvette Chingby blood pressure, diastolic 80 mm[Hg] Vu Chingby blood pressure, systolic 124 mm[Hg] Amy Chingby blood pressure, diastolic, supine 74 mm[H g] Yvette Chingby blood pressure, systolic, supine E&M 122 mm[Hg] Yvette Mejía pulse rate 105 /min Yvette Chingby oxygen saturation, oximetry 96 % Yvette Mejía respiratory rate E&M 18 /min Yvette Mejía Body Mass Index (Ratio) 23.51 kg/m2 Sterling Chingby weight E&M 159.2 [lb_av] Yvette Mejía blood pressure, diastolic 93 mm[Hg] Me miranda Abbott blood pressure, systolic 132 mm[Hg] Deja Abbott pulse rate 57 /min Nery Abbott oxygen saturation, oximetry 98 % Nery Abbott respiratory rate E&M 16 /min Nery Abbott Body Mass Index (Ratio) 23.42 kg/m2 Rachael Abbott height E&M 69 [in_i] Nery Abbott weight E&M 158.6 [lb_av] Nery Abbott ALLERGIES No Known Drug Allergies HISTORY OF MEDICATION USE Medication Status Instructions Dates Provider Indications Com ments diltiazem HCl 60 mg tablet active TAKE 1 & 1/2 (ONE & ONE-HALF) TABLETS BY MOUTH THREE TIMES DAILY Elizabeth Holm Cardizem 60 mg tablet completed Take 1 1/2 tablet by mouth three times a day - Elizabeth Holm magnesium oxide 400 mg (241.3 mg magnesium) tablet active TAKE 1 TABLET BY MOUTH DAILY Gaby Soriano NP albuterol sulfate 90 mcg/actuation HFA aerosol inhaler active as needed Gaby Soriano NP atorvastatin 10 mg tablet active TAKE 1 TABLET BY MOUTH DAILY Kodak Olea dicyclomine 10 mg capsule active Take 1 capsule by mouth once a day prclive Koehler NP mometasone 0.1% cream active Apply a small amount to skin once a day zach Koehler NP anastrozole 1 mg tablet active 1 tablet once a day Dolorse Alston Colace 100 mg capsule active Take 1 tablet by mouth as needed Yvette Mejía EQL OMEGA 3 FISH OIL 1000 MG CAPS completed Take 1 tablet by mouth once a day - Gaby Soriano NP TAMOXIFEN CITRATE 20 MG ORAL TABLET (TAMOXIFEN CITRATE) completed TAKE ONE TABLET BY MOUTH ONCE DAILY - Dolores Alston ANASTROZOLE 1 MG ORAL TABLET completed Take 1 tab daily - Yvette Mejía CALCIUM CAPSULE active Take 2 tablet once a day Elizabeth Holm VITAMIN D 1000 UNIT ORAL TABLET completed Take 1 tablet once a day - Natacha Koehler NP CATAPRES 0.1 MG ORAL TABLET completed One tab twice daily - Irina Castañeda PROPAFENONE HCL 150 MG ORAL TABLET completed One Tab Three Times A Day - Saúl Wolff DO DICYCLOMINE HCL 10 MG ORAL CAPSULE completed as needed - Robby Parekh VERAPAMIL HCL ER 240 MG ORAL TABLET EXTENDED RELEASE completed ONE TAB. DAILY - Saúl Wolff DO ASPIRIN 81 MG ORAL TABLET active 1 tablet once a day Elizabeth Holm SOCIAL HISTORY Date Observation Value Provider smoking status Never smoker Kodak Olea number of grandchildren Alrfed Olea smoking status Never smoker Kodak Olea social history E&M S moking History: P lorenzo has never smoked. Kodak Olea social history reviewed E&M revi ewed - no changes required Kodak Olea smoking status Never smoker Seble Jane nickelvira smoking status Never smoker Gloria Mari and smoking status Never smoker Elizabeth harris smoking status Never smoker Saúl solares DO social history E&M S moking History: Juan Daniel ventura has never smoked. Saúl Wolff DO social history reviewed E&M revi ewed - no changes required Saúl Wolff DO smoking status Never smoker Saúl solares DO social history reviewed E&M revi ewed - no changes required Saúl Wolff DO smoking status Never smoker Tila Renny smoking status Never smoker Tila Lawson social history reviewed E&M revi ewed - no changes required Saúl Wolff DO social history E&M S moking History: Juan Daniel ventura has never smoked. Saúl Wolff DO smoking status Never smoker Saúl solares DO social history E&M S moking History: Juan Daniel ventura has never smoked. Marcela Lance RN social history reviewed E&M revi ewed - no changes required Marcela Lance RN smoking status Never smoker Marcela Lance RN smoking/tobacco cess ation, patient education and counseling yes Saúl Wolff DO social history reviewed E&M revi ewed - no changes required Saúl Wolff DO number of grandchildren Saúl Womackisty [place] smoking/tobacco cess ation, patient education and counseling yes Nery Abbott FAMILY HISTORY Family Member Condition Mother Family History Emily littlejohn Cancer: INSURANCE PROVIDERS Payer name Policy type / Coverage type Ekaterina red democrat ID [employer] MED[employer]ARE ADVANTAGE ST 0 003 (HMO POS) Medicare [id number] ADVANCE DIRECTIVES Name Date LIVING WILL ON FILE TREATMENT PLAN Date Name Performer [id number],C,W ill enroll pt in RPM to better monitor her BP BP today: 149/77 P rior BP: 161/90 (06/14/2022) Kodak Vinsonza [id number],C,No CP current ly. [facility]ak [facility] [id number],C,R ecent device check showed AT/AF [place]: 0.0%, % Pacing: RA - 95.0% RV - 8.0%. Kodak anthony [id number],C,Stable Kodak A edzai [id number],C,N o burden seen on remote device check Kodak anthony [id number],C,M ultifactorial, non cardiac etiology, her stress nuc was normal. Kodak anthony [id number],C,w ill check nuclear stress test. echo as above Gaby Christie [employer] [id number],C,r uns of AFIB noted on interrogation will start magnesium oxide 40mmg daily and diltaizem 90mg TID Gaby Yanerna [employer] HAND [id number],C, pt states that she has been experinecing intermittent CP. pt states a couple of months ago she described the pain as 'crusthing' while busy at work that lasted about 30 seconds, that occurred a couple differnent times. lately she experiences intermittent chest tightness with exertion 'about 30% of the time when walking up stairs'. this resolves with rest. she also reports progressively worsening SOB/LYNN over the last few months. pt does also experience intermittent dizziness, palpitations, increased fatigue and decreased activity tolerance. pt denies any increased BLE edema, orthopnea, PND. will check nuclear stress test- pt has pacemaker. will check carotids and AAA Gaby Soriano NP [id number],C,i nterrogation today 14 recordings AF and HVR. battery good. 50%, normal function will start magnesium oxide 400mg daily and Diltiazem 90mg TID ECHO 05/27/22 at [facility]: EF 60-65%, milkdly iuncreased LV wall thickness. Grade 1 diastolic dysdunction, mild anterior and mild posterior MV leaflet prolapse. trace MR, Trace TR. no pulm htn Gaby Soriano NP [id number],S,i mproves with rest. at baseline per patient. will check echo Alfred Figueroa MD [id number],C,p er last device check, appropriate function noted. Alfred Figueroa MD [id number],C, Saelijahus Alta gamboa MD [id number],S,improves with rest. at baseline Natacha Koehler NP Electrophysiology: O rders: C arotid Duplex Bilateral (CPT-80221) Kodak Olea Electrophysiology:no CP s tress test normal in 06/2022 Kodak Olea Electrophysiology:Th is visit has been a part of the consistent, comprehensive, and ongoing management of the chronic medical condition(s) listed above for the patient. BP today: 111/70 P rior BP: 137/83 (09/12/2023) Her updated medication list for this problem includes: Diltiazem Hcl 60 Mg Tablet (Diltiazem hcl) ..... Take 1 & 1/2 (one & one-half) tablets by mouth three times daily Kodak Olea Electrophysiology: N o burden seen on remote device check Kodak Olea Electrophysiology:normal functio n [facility] Electrophysiology: S table Her updated medication list for this problem includes: Diltiazem Hcl 60 Mg Tablet (Diltiazem hcl) ..... Take 1 & 1/2 (one & one-half) tablets by mouth three times daily [facility]: H er updated medication list for this problem includes: Cardizem 60 Mg Tablet (Diltiazem hcl) ..... Take 1 1/2 tablet by mouth three times a day [facility] Electrophysiology: S table [facility] Electrophysiology: N o burden seen on remote device check [facility] Electrophysiology:no rmal function A T/AF [place]: 0.0% % Pacing: RA - 97.0% RV - 10.0% [facility] Electrophysiology:he r chest pain is likely musculoskeletol based on the atypical description s tress test normal in 06/2022 [facility] Electrophysiology: B P today: 137/83 P rior BP: 149/77 (09/13/2022) Her updated medication list for this problem includes: Cardizem 60 Mg Tablet (Diltiazem hcl) ..... Take 1 1/2 tablet by mouth three times a day [facility] Electrophysiology:Wi ll enroll pt in RPM to better monitor her BP BP today: 149/77 P rior BP: 161/90 (06/14/2022) [facility] Electrophysiology:No CP currentl y. [facility] Electrophysiology:Re cent device check showed AT/AF [place]: 0.0%, % Pacing: RA - 95.0% RV - 8.0%. [facility] Electrophysiology:Stable [facility] Electrophysiology:No burden seen on remote device check [facility] Electrophysiology:Mu ltifactorial, non cardiac etiology, her stress nuc was normal. [facility] Electrophysiology:wi ll check nuclear stress test. echo as above Gaby Templetonmarcel FLORES Electrophysiology:ru ns of AFIB noted on interrogation will start magnesium oxide 40mmg daily and diltaizem 90mg TID Gaby Soriano MARK Electrophysiology: p t states that she has been experinecing intermittent CP. pt states a couple of months ago she described the pain as 'crusthing' while busy at work that lasted about 30 seconds, that occurred a couple differnent times. lately she experiences intermittent chest tightness with exertion 'about 30% of the time when walking up stairs'. this resolves with rest. she also reports progressively worsening SOB/LYNN over the last few months. pt does also experience intermittent dizziness, palpitations, increased fatigue and decreased activity tolerance. pt denies any increased BLE edema, orthopnea, PND. will check nuclear stress test- pt has pacemaker. will check carotids and AAA Gaby Soriano NP Electrophysiology:in terrogation today 14 recordings AF and HVR. battery good. 50%, normal function will start magnesium oxide 400mg daily and Diltiazem 90mg TID ECHO 05/27/22 at [facility]: EF 60-65%, milkdly iuncreased LV wall thickness. Grade 1 diastolic dysdunction, mild anterior and mild posterior MV leaflet prolapse. trace MR, Trace TR. no pulm htn Gaby Soriano NP Electrophysiology:im proves with rest. at baseline per patient. will check echo Alfred Figueroa MD Electrophysiology:pe r last device check, appropriate function noted. Alfred Figueroa MD Electrophysiology Alfred pérez MD Electrophysiology:improves with rest. at baseline Natacha Koehler NP Electrophysiology:s/p BIO DC PPM Saúl New DO Electrophysiology:Sh e is doing well overall, however, she does complain of SOB worsening since seen in 2019. D evice interrogation shows recurrent episodes of very brief atrial tach, longest 6 seconds, but no sustained arrhythmias. S he does feel brief palpitations, but states they are not associated with SOB. Will check PFTs and PA and lateral CXR. [facility]:Di d not respond to Verapamil. N o response to Rythmol C ouldn't tolerate Catapress. D evice interrogation shows recurrent episodes of very brief atrial tach, longest 6 seconds, but no sustained arrhythmias and no afib. [facility] Electrophysiology: S /p pacemaker. [facility] Electrophysiology:Di d not respond to Verapamil. N o response to Rythmol and bad taste. C ouldn't tolerate Catapress. symptoms much bedtter with change instress from work. r are breif palpitations last several seconds Saúl [facility] Electrophysiology:No rmal function. Saúl [facility] Electrophysiology - DG faxed 611, lo: n o recurrences [facility] Electrophysiology - DG faxed 02-02, lo: S /p pacemaker. [facility] Electrophysiology - DG faxed 611, lo:Did not respond to Verapamil. n o response to Rythmol and bad taste c ouldn't tolerate Catapress symptoms much bedtter with change instress from work. r are breif palps last several seconds [facility] Electrophysiology fa xed 1-, lo: n o recurrences [facility] Electrophysiology fa xed 1-, lo: S /p pacemaker. [facility] Electrophysiology fa xed 1-26, lo:Did not respond to Verapamil. n o response to Rythmol and bad taste c ouldn't tolerate Catapress symptoms much bedtter with change instress from work. rare breif palps last several seconds willing to try coreg after radiation ends in 3-4 months. Will wait until after current surgery. Saúl [facility] Electrophysiology fx ed on 04-15 to pcp, lo: n ot reponsding to Verapamil. n o response to Rythmol and bad taste c ouldn't tolerate Catapress symptoms much bedtter with change instress from work. r are breif palps last several seconds willing to try coreg after radiation ends in 3-4 months Saúl [facility] Electrophysiology fx ed on 04-15 to pcp, lo:S/p pacemaker. Saúl [facility] Electrophysiology fx ed on 04-15 to pcp, lo:probably related to neurally mediated syncope. No evidence of arrhytthmia on pacemaker at time of diagnostics. No evidence of VT during surgery on 03/24, was likely due to Vpacing. Prior normal cath and normal echo. [facility] Electrophysiology fa xed 04/08/17bs: n ot reponsding to Verapamil. n o response to Rythmol and bad taste c ouldn't tolerate Catapress symptoms much bedtter with change instress from work. r are breif palps last several seconds willing to try coreg after radiation ends in 3-4 months Dwight Sly [employer] EP:no recurrences Saúl [facility] EP: S /P DDD PPM [facility] EP: n ot reponsding to Verapamil. n o response to Rythmol and bad taste c ouldn't tolerate Catapress symptoms much bedtter with change instress from work. r are breif palps last several months [facility] EP: n ot reponsding to Verapamil. n o response to Rythmol and bad taste D C Rythmol t rial Catapress 0.1mg BID discussed possible AVN RFA [facility] EP:not reponsding to Verapamil. w ill DC and try Rythmol 150 mg TID E KG in 1 week if refractory will try Catapress [facility] EP:S/P DDD PPM [facility] Cardiology [facility] Cardiology:will star t pt on Verapamil CR 240mg/day and reprogram CLS on ppm to overdrive competing junctional rhythm' if ineffective will DC verapmail and try propafenone Saúl Wolff DO Date Name Carotid Duplex Bilat eral Aorta Duplex Ultraso und Complete Echo Complete Echo Carotid Duplex Bilat eral Complete Echo Aorta Duplex Ultraso und Carotid Duplex Bilat eral Stress Regadenoson Complete Echo RPM (remote patient monitoring) Complete Echo CXR- PA/Lat DLCO - 66376 FRC - [id number] FVC - [id number] HISTORY OF PROCEDURES Procedure Date Procedure Name Provider Procedure Notes S tatus EKG Alfred mtz MD completed EKG Alfred mtz MD completed Schedule Followup Alfred pérez MD [address] Figueroa completed EKG Alfred mtz MD completed EKG Saúl Wolff DO completed ICM Interrogation, Remote (Prof) Saúl Wolff DO INTERROGATION EVAL REMOTE </30 D CV MNTR SYS completed ICM Interrogation, Remote (Tech) Saúl Wolff DO INTERROGATION EVAL REMOTE </30 D TECH REVIEW completed ICM Interrogation, Remote (Prof) Saúl Wolff DO INTERROGATION EVAL REMOTE </30 D CV MNTR SYS completed Pacemaker Interrogation, Remote (Tech) Saúl Wolff DO INTERROGATION REMOTE </90 D SHELTER MONITOR REVIEW completed Pacemaker Interrogation, Remote (Prof) Saúl Wolff DO INTERROGATION EVAL REMOTE </90 D 1/2/CAR WASH ATTENDANT LEAD P completed ICM Interrogation, Remote (Prof) Saúl Wolff DO INTERROGATION EVAL REMOTE </30 D CV MNTR SYS completed ICM Interrogation, Remote (Tech) Saúl Solanock DO INTERROGATION EVAL REMOTE </30 D TECH REVIEW completed ICM Interrogation, Remote (Prof) Saúl [place] DO INTERROGATION EVAL REMOTE </30 D CV MNTR SYS completed ICM Interrogation, Remote (Tech) Saúl [place] DO INTERROGATION EVAL REMOTE </30 D TECH REVIEW completed Schedule Pacer Check Saúl Beltran cock DO in 1 yr completed Schedule Followup Saúl Glasangeloc k DO in 1 yr completed EKG Saúl [place] DO completed ICM Interrogation, Remote (Prof) Saúl [place] DO INTERROGATION EVAL REMOTE </30 D CV MNTR SYS completed ICM Interrogation, Remote (Tech) Saúl [place] DO INTERROGATION EVAL REMOTE </30 D TECH REVIEW completed ICM Interrogation, Remote (Prof) Saúl [place] DO INTERROGATION EVAL REMOTE </30 D CV MNTR SYS completed Pacemaker Interrogation, Remote (Tech) Saúl [place] DO INTERROGATION REMOTE </90 D SHELTER MONITOR REVIEW completed Pacemaker Interrogation, Remote (Prof) Saúl [place] DO INTERROGATION EVAL REMOTE </90 D 1/2/CAR WASH ATTENDANT LEAD P completed ICM Interrogation, Remote (Prof) Saúl [place] DO INTERROGATION EVAL REMOTE </30 D CV MNTR SYS completed ICM Interrogation, Remote (Tech) Saúl [place] DO INTERROGATION EVAL REMOTE </30 D TECH REVIEW completed ICM Interrogation, Remote (Prof) Saúl [place] DO INTERROGATION EVAL REMOTE </30 D CV MNTR SYS completed ICM Interrogation, Remote (Tech) Saúl [place] DO INTERROGATION EVAL REMOTE </30 D TECH REVIEW completed ICM Interrogation, Remote (Prof) Saúl [place] DO INTERROGATION EVAL REMOTE </30 D CV MNTR SYS completed Pacemaker Interrogation, Remote (Tech) Saúl [place] DO INTERROGATION REMOTE </90 D SHELTER MONITOR REVIEW completed Pacemaker Interrogation, Remote (Prof) Saúl [place] DO INTERROGATION EVAL REMOTE </90 D 1/2/CAR WASH ATTENDANT LEAD P completed ICM Interrogation, Remote (Prof) Saúl [place] DO INTERROGATION EVAL REMOTE </30 D CV MNTR SYS completed ICM Interrogation, Remote (Tech) Saúl [place] DO INTERROGATION EVAL REMOTE </30 D TECH REVIEW completed ICM Interrogation, Remote (Prof) Saúl [place] DO INTERROGATION EVAL REMOTE </30 D CV MNTR SYS completed ICM Interrogation, Remote (Tech) Saúl [place] DO INTERROGATION EVAL REMOTE </30 D TECH REVIEW completed ICM Interrogation, Remote (Prof) Saúl [place] DO INTERROGATION EVAL REMOTE </30 D CV MNTR SYS completed Pacemaker Interrogation, Remote (Tech) Saúl [place] DO INTERROGATION REMOTE </90 D SHELTER MONITOR REVIEW completed Pacemaker Interrogation, Remote (Prof) Saúl [place] DO INTERROGATION EVAL REMOTE </90 D 1/2/CAR WASH ATTENDANT LEAD P completed ICM Interrogation, Remote (Prof) Saúl [place] DO INTERROGATION EVAL REMOTE </30 D CV MNTR SYS completed ICM Interrogation, Remote (Tech) Saúl [place] DO INTERROGATION EVAL REMOTE </30 D TECH REVIEW completed ICM Interrogation, Remote (Prof) Saúl [place] DO INTERROGATION EVAL REMOTE </30 D CV MNTR SYS completed ICM Interrogation, Remote (Tech) Saúl [place] DO INTERROGATION EVAL REMOTE </30 D TECH REVIEW completed EKG Saúl [place] DO completed ICM Interrogation, Remote (Prof) Saúl [place] DO INTERROGATION EVAL REMOTE </30 D CV MNTR SYS completed Pacemaker Interrogation, Remote (Tech) Saúl [place] DO INTERROGATION REMOTE </90 D SHELTER MONITOR REVIEW completed Pacemaker Interrogation, Remote (Prof) Saúl [place] DO INTERROGATION EVAL REMOTE </90 D 1/2/CAR WASH ATTENDANT LEAD P completed ICM Interrogation, Remote (Prof) Saúl [place] DO INTERROGATION EVAL REMOTE </30 D CV MNTR SYS completed ICM Interrogation, Remote (Tech) Saúl [place] DO INTERROGATION EVAL REMOTE </30 D TECH REVIEW completed ICM Interrogation, Remote (Prof) Saúl [place] DO INTERROGATION EVAL REMOTE </30 D CV MNTR SYS completed ICM Interrogation, Remote (Tech) Saúl [place] DO INTERROGATION EVAL REMOTE </30 D TECH REVIEW completed ICM Interrogation, Remote (Prof) Saúl [place] DO INTERROGATION EVAL REMOTE </30 D CV MNTR SYS completed ICM Interrogation, Remote (Tech) Saúl [place] DO INTERROGATION EVAL REMOTE </30 D TECH REVIEW completed ICM Interrogation, Remote (Prof) Saúl [place] DO INTERROGATION EVAL REMOTE </30 D CV MNTR SYS completed ICM Interrogation, Remote (Tech) Saúl [place] DO INTERROGATION EVAL REMOTE </30 D TECH REVIEW completed EKG Saúl [place] DO completed SNOMED-CT: [id number] Current Medications Documented Saúl [place] DO completed Schedule Pacer Check Saúl Glas cock DO in 4 months after radiation completed Schedule Followup Saúl Glascoc k DO in 4 months after radiation completed EKG Saúl [place] DO completed SNOMED-CT: [id number] Current Medications Documented Saúl [place] DO completed ICM Interrogation, Remote (Prof) Saúl [place] DO INTERROGATION EVAL REMOTE </30 D CV MNTR SYS completed ICM Interrogation, Remote (Tech) Saúl [place] DO INTERROGATION EVAL REMOTE </30 D TECH REVIEW completed ICM Interrogation, Remote (Prof) Saúl [place] DO INTERROGATION EVAL REMOTE </30 D CV MNTR SYS completed Pacemaker Interrogation, Remote (Tech) Saúl [place] DO INTERROGATION REMOTE </90 D SHELTER MONITOR REVIEW completed Pacemaker Interrogation, Remote (Prof) Saúl [place] DO INTERROGATION EVAL REMOTE </90 D 1/2/CAR WASH ATTENDANT LEAD P completed ICM Interrogation, Remote (Prof) Saúl [place] DO INTERROGATION EVAL REMOTE </30 D CV MNTR SYS completed ICM Interrogation, Remote (Tech) Saúl [place] DO INTERROGATION EVAL REMOTE </30 D TECH REVIEW completed ICM Interrogation, Remote (Prof) Saúl [place] DO INTERROGATION EVAL REMOTE </30 D CV MNTR SYS completed ICM Interrogation, Remote (Tech) Saúl [place] DO INTERROGATION EVAL REMOTE </30 D TECH REVIEW completed ICM Interrogation, Remote (Prof) Saúl [place] DO INTERROGATION EVAL REMOTE </30 D CV MNTR SYS completed Pacemaker Interrogation, Remote (Tech) Saúl [place] DO INTERROGATION REMOTE </90 D SHELTER MONITOR REVIEW completed Pacemaker Interrogation, Remote (Prof) Saúl [place] DO INTERROGATION EVAL REMOTE </90 D 1/2/CAR WASH ATTENDANT LEAD P completed EKG Saúl [place] DO completed SNOMED-CT: [id number] Current Medications Documented Saúl [place] DO completed ICM Interrogation, Remote (Prof) Saúl [place] DO INTERROGATION EVAL REMOTE </30 D CV MNTR SYS completed ICM Interrogation, Remote (Tech) Saúl [place] DO INTERROGATION EVAL REMOTE </30 D TECH REVIEW completed ICM Interrogation, Remote (Prof) Saúl [place] DO INTERROGATION EVAL REMOTE </30 D CV MNTR SYS completed Pacemaker Interrogation, Remote (Tech) Saúl [place] DO INTERROGATION REMOTE </90 D SHELTER MONITOR REVIEW completed Pacemaker Interrogation, Remote (Prof) Saúl [place] DO INTERROGATION EVAL REMOTE </90 D 1/2/CAR WASH ATTENDANT LEAD P completed SNOMED-CT: [id number] Current Medications Documented Saúl [place] DO completed EKG Saúl Wolff DO completed ICM Interrogation, Remote (Prof) Saúl Beltrancock DO INTERROGATION EVAL REMOTE </30 D CV MNTR SYS completed ICM Interrogation, Remote (Tech) Saúl [place] DO INTERROGATION EVAL REMOTE </30 D TECH REVIEW completed ICM Interrogation, Remote (Prof) Saúl Beltrancock DO INTERROGATION EVAL REMOTE </30 D CV MNTR SYS completed ICM Interrogation, Remote (Tech) Saúl [place] DO INTERROGATION EVAL REMOTE </30 D TECH REVIEW completed ICM Interrogation, Remote (Prof) Saúl [place] DO INTERROGATION EVAL REMOTE </30 D CV MNTR SYS completed Pacemaker Interrogation, Remote (Tech) Saúl [place] DO INTERROGATION REMOTE </90 D SHELTER MONITOR REVIEW completed Pacemaker Interrogation, Remote (Prof) Saúl Beltrancock DO INTERROGATION EVAL REMOTE </90 D 1/2/CAR WASH ATTENDANT LEAD P completed EKG Saúl Wolff DO completed SNOMED-CT: [id number] Smoking Cessation Counseling Saúl Wolff completed EKG Saúl Wolff DO completed SNOMED-CT: [id number] Current Medications Documented Saúl Wolff DO completed ICM Interrogation, Remote (Prof) Saúl Solanock DO INTERROGATION EVAL REMOTE </30 D CV MNTR SYS completed ICM Interrogation, Remote (Tech) Saúl [place] DO INTERROGATION EVAL REMOTE </30 D TECH REVIEW completed ICM Interrogation, Remote (Prof) Saúl [place] DO INTERROGATION EVAL REMOTE </30 D CV MNTR SYS completed ICM Interrogation, Remote (Tech) Saúl [place] DO INTERROGATION EVAL REMOTE </30 D TECH REVIEW completed ICM Interrogation, Remote (Prof) Saúl [place] DO INTERROGATION EVAL REMOTE </30 D CV MNTR SYS completed Pacemaker Interrogation, Remote (Tech) Saúl [place] DO INTERROGATION REMOTE </90 D SHELTER MONITOR REVIEW completed Pacemaker Interrogation, Remote (Prof) Saúl Wolff DO INTERROGATION EVAL REMOTE </90 D 1/2/CAR WASH ATTENDANT LEAD P completed ICM Interrogation, Remote (Prof) Saúl Solanock DO INTERROGATION EVAL REMOTE </30 D CV MNTR SYS completed ICM Interrogation, Remote (Tech) Saúl Solanock DO INTERROGATION EVAL REMOTE </30 D TECH REVIEW completed SNOMED-CT: [id number] Smoking Cessation Counseling Saúl Wolff DO completed EKG Saúl Wolff DO completed SNOMED-CT: [id number] Current Medications Documented Saúl Wolff DO completed ICM Interrogation, Remote (Prof) Saúl Wolff DO INTERROGATION EVAL REMOTE </30 D CV MNTR SYS completed ICM Interrogation, Remote (Tech) Saúl Solanock DO INTERROGATION EVAL REMOTE </30 D TECH REVIEW completed
--- OUTSIDE RECORDS SUMMARY | 2024-09-21 15:27 | XMS_ITS | Clinical Summary ---
Author Organization [facility] Address [address] [place] [address] Care Team Providers Care Planting Material Remover Name Role Phone Darwin Bond MD Primary Care Provider [phone] Allergies No known active allergies Medications aspirin (ECOTRIN EC) 81 mg Tablet, Delayed Release (E.C.) Take 81 mg by mouth daily. Active docusate sodium (COLACE) 100 mg capsule Take 100 mg by mouth 2 times daily. Active fish oil-omega-3 fatty acids 340-1,000 mg Capsule Take 1 Capsule by mouth daily. Active PREVNAR 13, PF, 0.5 mL Syringe 9 Active atorvastatin (LIPITOR) 10 mg tablet 1 Active multivitamin (DAILY-NAOMIE) tablet Take 1 Tablet by mouth daily. Active diltiaZEM (CARDIZEM) 60 mg tablet Take 90 mg by mouth 3 times daily. 2 Active fluticasone propion-salmete roL (AIRDUO RESPICLICK) 113-14 mcg/actuation Take 1 Puff by inhalation 2 times daily. 3 Active anastrozole (ARIMIDEX) 1 mg tabletIndicatio ns:Malignant neoplasm of upper-outer quadrant of right breast in female, estrogen receptor positive (CMS/HCC) Take 1 tablet by mouth once daily 30 Tablet 4 Active Active Problems Problem Noted Date Diagnosed Date Fatigue 06/29/2019 SERM use (selective estrogen receptor modulator) 11/19/2018 Seborrheic keratoses, inflamed 06/24/2018 Pruritic erythematous rash 06/24/2018 History of external beam radiation therapy 06/24 Disproportion of reconstructed breast 12/23/2017 Malignant neoplasm of upper- outer quadrant of right breast in female, estrogen receptor positive 07/29/2017 Resolved Problems Problem Noted Date Diagnosed Date Resolved Date Viral warts 01/13/2018 11/19/2018 Nevus of multiple sites of trunk 12/23/2017 11/19/2018 Aromatase inhibitor use 12/23/201710/24 Encounters Date Type Department Care Team Description 09/17/[address] [facility] Oncology and Hematology [facility] [address] [place] [address] Gume Henriquez MD Malignant neoplasm of upper-outer quadrant of right breast in female, estrogen receptor positive (CMS/HCC) (Primary Dx) 09/16/2024 External Device Data [facility] ABSTRACTION Provider, Abstract 07/01/[address] [facility] [address] [place] [address] Gume Henriquez MD Malignant neoplasm of upper-outer quadrant of right breast in female, estrogen receptor positive (CMS/HCC) from Last 3 Months Family History Medical History Relation Name Comments No Known Problems Brother Melanoma Father Breast Cancer Mother Relation Name Status Comments Brother Alive Father Mother Social History Tobacco Use Types Packs/Day Years Used Date Smoking Tobacco: Never Smokeless Tobacco: Never Tobacco Cessation:Counseling Given: Not Answered Alcohol Use Standard Drinks/Week Comments Yes 1 (1 standard drink = 0.6 oz pur e alcohol) Comments No Sex and Gender Information Value Date Recorded Sex Assigned at Female 07/16/2024 9:01 AM LAUNDRY WORKER Legal Sex Female 8:57 AM CDT Gender Identity Female 07/16/2024 9:01 AM LAUNDRY WORKER Sexual Orientation Straight 07/16/2024 9: 01 AM LAUNDRY WORKER Last Filed Vital Signs Vital Sign Reading Time Taken Comments Blood Pressure 118/80 07/02/2023 3:44 PM LAUNDRY WORKER Pulse 117 07/02/2023 3:44 PM LAUNDRY WORKER Temperature 36.6 ??C (97.9 ??F) 07/02/2023 3:44 PM CS T Respiratory Rate 18 07/02/2023 3:44 PM LAUNDRY WORKER Oxygen Saturation 98% 07/02/2023 3:44 PM LAUNDRY WORKER Inhaled Oxygen Concentration - - Weight 68.6 kg (151 lb 3.2 oz) 07/02/2023 3:44 P M LAUNDRY WORKER Height 175.3 cm (5' 9 ) 07/03/2021 3:42 PM LAUNDRY WORKER Body Mass Index 22.33 07/03/2021 3:42 PM LAUNDRY WORKER Plan of Treatment Upcoming Encounters Date Type Department Care Team (Late st Contact Info) Description 09/29/2024 2:45 PM LAUNDRY WORKER Office Visit [facility] Oncology and Hematology - [place] [address] [facility] [address] [place] [address] Gume Henriquez MD [address] [facility] [address] [place] [address] Health Maintenance Due Date Last Done Comments DTAP/TDAP/TD VACCINES (1 - Tdap) 1972 FIT-DNA Q 3 years 1998 FIT/FOBT Q 1 year 1998 Flex Sig/CT Colonography Q 5 years 1998 PNEUMOCOCCAL VACCINE 65+ YEA RS (1 of 1 - PCV) 2003 ZOSTER VACCINE (1 of 2) 2003 INFLUENZA VACCINE (#1) 2024 COVID-19 Vaccine (3 - 2023-2 5 season) 2024 09/01/2020, 08/11/2020 Preventative Visit- Commercial 08/25/2024 BREAST CANCER SCREENING 12/14/2024 12/15/19 24, 08/15/2020, 05/25/2019, Additional history exists COLORECTAL SCREENING 01/13/2027 01/13/2017 Colorectal Cancer Screening 01/13/2027 RSV VACCINE (60+ or ) (1 - 1-dose 75+ series) 2028 OSTEOPOROSIS SCREENING Completed 07/10/2018 Procedures Procedure Name Priority Date/Time Associated Diagnosis Comments MAMMO SCREENING BILAT Routine 12/15/2023 10:34 AM CDT XR DEXA BONE DENSITY AXIAL 1 OR MORE SITES Routine 07/10/2018 Osteoporosis, unspecified osteoporosis type, unspecified pathological fracture presence from Last 3 Months or Most Recently Relevant to Health Maintenance Results * MAMMO SCREENING BILAT (12/15/2023 10:34 AM CDT) Anatomical Region Laterality Modality Breast Bilateral Other Gume Henriquez MD MAMMO ORDERABLES Final Result * XR DEXA BONE DENSITY AXIAL 1 OR MORE SITES (07/10/2018) Anatomical Region Laterality Modality Other Gume Henriquez MD DIAGNOSTIC IMAGING ORDERABLES F inal Result from Last 3 Months or Most Recently Relevant to Health Maintenance Insurance MEDICARE PART A HOSPITAL ONLY [employer] OPTIONS PPO [id number] [facility] OPTIONS PPO [id number] MEDICARE PART A HOSPITAL ONLY Care Teams Planting Material Remover Relationship Specialty Start Date End Date Darwin Bond MD [address] [place] [address] PCP - General Family Practice 07/02/23
[2024-09-21 15:59] LABS: Alanine Aminotransferase 24 U/L (6-35); Albumin Level 4.5 g/dL (3.5-5.1); Alkaline Phosphatase 89 U/L (38-126); Anion Gap 12 mmol/L (4-12); Aspartate Amino Transferase 36 U/L (14-36); Bilirubin,Total 0.4 mg/dL (0.2-1.3); Blood Urea Nitrogen 18 mg/dL (7-17); Calcium 9.3 mg/dL (8.4-10.2); Carbon Dioxide 28 mmol/L (22-30); Chloride 103 mmol/L (98-107); Estimated Glomerular Filt Rate > 60; Glucose 96 mg/dL (65-110); Sodium 143 mmol/L (137-145)
[2024-09-23 02:38] LABS: CA 15-3 7 U/mL (<32)
== END 2024-09-21 14:57 | disposition home or self-care (01) ==
LOC: ANHLAB 14:57
PROVIDERS: PCP Family Medicine; Visit Provider Internal Medicine Hematology & Oncology
DX: C50.411 Malignant neoplasm of upper-outer quadrant of right female breast (principal); Z17.0 Estrogen receptor positive status [ER+]
CPT/HCPCS: 36415; 80053; 85025; 86300

== ENCOUNTER 2024-12-24 15:31 | Outpatient (CLI) | payer MEDICARE, SELFPAY ==
--- NOTE | ~2024-12-24 | MM_ITS ---
EXAMINATION: MM screening leydi BI w jessica HISTORY: Screening TECHNIQUE: Craniocaudal and mediolateral oblique 3-D tomosynthesis images were obtained and synthetic 2-D images were generated. CAD analysis was submitted and interpreted. COMPARISON: Comparison to multiple prior studies sequentially, with oldest reviewed study dated 11/12. BREAST PARENCHYMAL COMPOSITION: Dense: The breasts are heterogeneously dense, which may obscure small masses FINDINGS: There is no evidence of suspicious mass, calcification, or architectural distortion to sugg est malignancy in either breast. There has been no suspicious interval change. IMPRESSION: 1. No mammographic evidence of malignancy. 2. Recommend routine screening mammography in one year. BI-RADS Category 1: Negative Reviewed, dictated and finalized at location A.
--- OUTSIDE RECORDS SUMMARY | 2024-12-25 14:54 | XMS_ITS | Clinical Summary ---
Author Organization [facility] Address [address] [place] [address] Care Team Providers Care Staking Technician Name Role Phone Darwin Bond MD Primary Care Provider [phone] Allergies No known active allergies Medications aspirin (ECOTRIN EC) 81 mg Tablet, Delayed Release (E.C.) Take 81 mg by mouth daily. Active PREVNAR 13, PF, [...] mouth once daily 30 Tablet 4 Active magnesium oxide (MAG-OX) 400 mg (241.3 mg magnesium) tablet magnesium oxide 400 mg (241.3 mg magnesium) tablet 2 Active Active Problems Problem Noted Date Diagnosed [...] Encounters Date Type Department Care Team Description 10/13/2024 External Device Data STL ABSTRACTION Provider, Abstract 10/12/2024 External Device Data [facility] ABSTRACTION Provider, Abstract 09/29/2024 2:45 PM MANAGER INSPECTION Office Visit [facility] Oncology and Hematology [place] [id number] [address] Gume Henriquez MD Malignant neoplasm of upper-outer quadrant of right breast in female, estrogen receptor positive (CMS/HCC) (Primary Dx) from Last 3 Months Family History Medical [...] Sex Assigned at Female 07/16/2024 9:01 AM MANAGER INSPECTION Legal Sex Female 8:57 AM CDT Gender Identity Female 07/16/2024 9:01 AM MANAGER INSPECTION Sexual Orientation Straight 07/16/2024 9: 01 AM MANAGER INSPECTION Last Filed Vital Signs Vital Sign Reading Time Taken Comments Blood Pressure 120/73 09/29/2024 2:59 PM MANAGER INSPECTION Pulse 89 09/29/2024 2:59 PM MANAGER INSPECTION Temperature 35.9 C (96.7 F) 09/29/2024 2:59 PM MANAGER INSPECTION Respiratory Rate 18 07/02/2023 3:44 PM MANAGER INSPECTION Oxygen Saturation 92% 09/29/2024 2:59 PM MANAGER INSPECTION Inhaled Oxygen Concentration - - Weight 63 kg (139 lb) 09/29/2024 2:59 PM MANAGER INSPECTION Height 175.3 cm (5' 9 ) 07/03/2021 3:42 PM MANAGER INSPECTION Body Mass Index 20.53 07/03/2021 3:42 PM MANAGER INSPECTION Plan of Treatment Upcoming Encounters Date Type Department Care Team (Late st Contact Info) Description 09/29/2025 10:00 AM MANAGER INSPECTION Office Visit [facility] Oncology and Hematology - [place] [address] [facility] [address] [place] [address] Gume Henriquez MD [address] [facility] [address] [place] [address] Health Maintenance Due Date Last Done Comments DTAP/TDAP/TD VACCINES (1 - Tdap) 1972 FIT-DNA Q 3 years 1998 FIT/FOBT Q 1 year 1998 Flex Sig/CT Colonography Q 5 years 1998 PNEUMOCOCCAL VACCINE 50+ YEA RS (1 of 1 - PCV) 2003 ZOSTER VACCINE (1 of 2) 2003 OSTEOPOROSIS SCREENING 07/10/2023 07/10/2018 INFLUENZA VACCINE (#1) 2024 COVID-19 Vaccine (3 - 2023-2 5 season) 2024 09/01/2020, 08/11/2020 BREAST CANCER SCREENING 12/14/2024 12/15/19 24, 08/15/2020, 05/25/2019, Additional history exists COLORECTAL SCREENING 01/13/2027 01/13/2017 Colorectal Cancer Screening 01/13/2027 RSV VACCINE (60+ or ) (1 - 1-dose 75+ series) 2028 Procedures Procedure Name Priority Date/Time Associated Diagnosis Comments MAMMO SCREENING BILAT Routine 12/15/2023 10:34 AM CDT XR DEXA BONE DENSITY AXIAL 1 OR MORE SITES Routine 07/10/2018 Osteoporosis, unspecified osteoporosis type, unspecified pathological fracture presence from Last 3 Months or Most Recently Relevant to Health Maintenance Results * MAMMO SCREENING BILAT (12/15/2023 10:34 AM CDT) Anatomical Region Laterality Modality Breast Bilateral Mammography Gume Henriquez MD MAMMO ORDERABLES Final Result * XR DEXA BONE DENSITY AXIAL 1 OR MORE SITES (07/10/2018) Anatomical Region Laterality Modality Other Gume Henriquez MD DIAGNOSTIC IMAGING ORDERABLES F inal Result from Last 3 Months or Most Recently Relevant to Health Maintenance Insurance [facility] [id number] Care Teams Staking Technician Relationship Specialty Start Date End Date Darwin Bond MD [address] [place] [id number] PCP - General Family Practice 07/02/23
--- OUTSIDE RECORDS SUMMARY | 2024-12-25 14:54 | XMS_ITS | Clinical Summary ---
Author Organization [facility] Address [address] [facility] [address] [place] [address] Phone Care Team Providers Care Electronic Equipment Installer Name Role Phone Babar Steiner MD Primary Care Provider [phone] Jacky Perry DO Unavailable [phone] Allergies No known active allergies Medications [...] on file Legal Sex Female 2:57 AM MEN'S GOLF COACH Gender Identity Not on file Sexual Orientation [...] Most Recently Relevant to Health Maintenance Insurance [facility] [place] [address] Care Teams Electronic Equipment Installer Relationship Specialty Start Date End Date Babar Steiner MD [address] [facility] [address] [place] [address] PCP - General Internal Medicine 09/17/16 Jacky Prery DO [address] [facility] [address] [place] [address] Consulting Physician Gastroenterology 01/13/17
--- OUTSIDE RECORDS SUMMARY | 2024-12-25 14:54 | XMS_ITS | Encounter Summary ---
Author Organization [facility] Address [address] [place] [address] Care Team Providers Care Retail Store Associate Name Role Phone Darwin Bond MD Primary Care Provider [phone] Encounter Details Date Type Department Care Team (Late Contact Info) Description 01/30/2018 Chart Note [facility] Radiation Therapy [address] [place] [address] [place] [address] [place] [address] Social History Tobacco Use Types Packs/Day Years Used Date Smoking Tobacco: Never Smokeless Tobacco: Never Alcohol Use Standard Drinks/Week Comments Yes 1 (1 standard drink = 0.6 oz pur e alcohol) Comments No Sex and Gender Information Value Date Recorded Sex Assigned at Female 07/16/2024 9:01 AM CURRICULUM CONSULTANT Legal Sex Female 8:57 AM CDT Gender Identity Female 07/16/2024 9:01 AM CURRICULUM CONSULTANT Sexual Orientation Straight 07/16/2024 9: 01 AM CURRICULUM CONSULTANT documented as of this encounter Plan of Treatment Upcoming Encounters Date Type Department Care Team (Late Contact Info) Description 09/29/2025 10:00 AM CURRICULUM CONSULTANT Office Visit [facility] Oncology and Hematology - [place] [address] [place] [address] Gume Henriquez MD [address] [facility] [address] [place] [address] documented as of this encounter Visit Diagnoses Not on filedocumented in this encounter Care Teams Retail Store Associate Relationship Specialty Start Date End Date Darwin Bond MD [address] [place] [address] PCP - General Family Practice 07/02/23 documented as of this encounter
--- OUTSIDE RECORDS SUMMARY | 2024-12-25 14:54 | XMS_ITS | CONTINUITY OF CARE DOCUMENT ---
Author Name doug camacho Address Unknown Organization [facility] Address [address] [place] [address] Phone [phone] Care Team Providers Care Barge Pilot Name Role Phone Alfred Figueroa MD Unavailable VIRGILIO DO, FUAD Unavailable [phone] VIRGILIO , FUAD Unavailable [phone] PROBLEMS Condition Status Date Provider Notes Bradycardia [...] NP Chest pain, intermittent active Gaby salcedo CORPORATE COMMUNICATIONS ASSOCIATE Fatigue active Kodak Ahmedzai Essential hypertension active Kodak Ahmedzai Carotid bruit active Kodak Ahmedzai Cardiology examination active Kodak Olea 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 Saúl Wolff DO ENCOUNTERS Date Type Provider Location Encounter Diag nosis - In-person encounter Office Visit Alfred Figueroa MD [facility] Cardiology examinationCarotid bruit - In-person encounter Office Visit Alfred Figueroa MD [facility] - In-person encounter Office Visit Alfred Figueroa MD [facility] FatigueEssential hypertension - In-person encounter Office Visit Alfred Figueroa MD [facility] Chest pain, intermittent - In-person encounter Office Visit Alfred Figueroa MD [facility] Palpitations, recurrentDyspnea on exertionSyncope (near) - In-person encounter Office Visit Saúl Wolff DO [facility] Office - In-person encounter Office Visit Saúl Wolff DO [facility] Office Status Post Biotronik dual chamber (MRI Safe) pacemaker - In-person encounter Office Visit Saúl Solanock [facility] Office - [facility]person encounter [facility] Visit Saúl [facility] Office - In-person encounter Office Visit Saúl [facility] Office - [facility]-person encounter [facility] Office Visit Saúl Wolff [facility] Office Status Post Biotronik dual chamber (MRI Safe) pacemaker - In-person encounter [facility] Office Visit Saúl [facility] Office VITAL SIGNS Date Observation Value Provider [...] Kodak anthony blood pressure, cuff size regular [facility], diastolic 83 mm[Hg] Ja et [...] Body Mass Index (Ratio) 23.18 kg/m2 [facility], diastolic 90 mm[Hg] Mi garrett [place] blood pressure, systolic 161 mm[Hg] Rodney ramirez [place] oxygen saturation, oximetry 98 % Gloria [place] pulse rate 76 /min Gloria Herzog rhona weight E&M 157 [lb_av] Gloria Herzog rhona respiratory rate E&M 16 /min Nubia norton [place] blood pressure, cuff size large Sruthi tucker [place] height E&M 69 [in_i] Gloria [facility] Body Mass Index (Ratio) 23.63 kg/m2 Jesus Figueroa MD blood pressure, cuff size large Ke rri [facility] blood pressure, diastolic 86 mm[Hg] Ke rri Gruenenfeldbernice blood pressure, systolic 152 mm[Hg] Bernice ri Mihai oxygen saturation, oximetry 97 % Elizabeth Mihai respiratory rate E&M 16 /min Elizabeth Lon anthony pulse rate 71 /min Elizabeth Rosalbae [facility] weight E&M 160 [lb_av] Elizabeth Kirannenfe [facility] height E&M 69 [in_i] Elizabeth Kirannenfe [facility] Body Mass Index (Ratio) 23.48 kg/m2 Denclive is [place] DO blood pressure, diastolic 70 mm[Hg] Rh [...] Mass Index (Ratio) 23.63 kg/m2 Denn is [place] DO blood pressure, diastolic 80 mm[Hg] Vu isty [place] blood pressure, systolic 118 mm[Hg] Kri sty [place] blood pressure, cuff size regular Vu isjoelle Alfonzo oxygen saturation, oximetry 95 % Yvette [place] pulse rate 89 /min Yvette [place] respiratory rate E&M 17 /min Yvette [place] weight E&M 160 [lb_av] Yvette Alfonzo height E&M 69 [in_i] Yvette [place] Body Mass Index (Ratio) 23.33 kg/m2 Denn is [place] DO blood pressure, diastolic 70 mm[Hg] Vu browne Alfonzo blood pressure, systolic 120 mm[Hg] Krpedrito stvladislav Alfonzo oxygen saturation, oximetry 98 % Yvette [place] pulse rate 70 /min Yvette [place] respiratory rate E&M 16 /min Yvette Alfonzo blood pressure, cuff size regular Vu browne [place] weight E&M 158 [lb_av] Yvette [place] height E&M 69 [in_i] Yvette Alfonzo Body Mass Index (Ratio) 24.22 kg/m2 Denn is [place] blood pressure, diastolic 62 mm[Hg] Te onia Izabella blood pressure, systolic 110 mm[Hg] Myles beata [place] oxygen saturation, oximetry 95 % Teonia [place] pulse rate 70 /min Teonia [place] respiratory rate E&M 18 /min Teonia [place] weight E&M 164 [lb_av] Teonia [place] height E&M 69 [in_i] Teonia [place] Body Mass Index (Ratio) 23.63 kg/m2 Denn is [place] DO Body Mass Index (Ratio) 23.63 kg/m2 Denn is [place] DO blood pressure, cuff size large Jess [...] Mass Index (Ratio) 23.27 kg/m2 Denn is [facility] blood pressure, resting Yes Vijaya Castañeda blood [...] Yvette [place] blood pressure, diastolic 80 mm[Hg] uV [place] blood pressure, systolic 124 mm[Hg] Amy [place] blood pressure, diastolic, supine 74 mm[H g] Yvette [place] blood pressure, systolic, supine E&M 122 mm[Hg] Yvette [place] pulse rate 105 /min Yvette [place] oxygen saturation, oximetry 96 % Yvette [place] respiratory rate E&M 18 /min Yvette [place] Body Mass Index (Ratio) 23.51 kg/m2 Sterling [...] ments diltiazem HCl 60 mg tablet active Take 1 1/2 tablet by mouth three times a day Elizabeth Mihai diltiazem HCl 60 mg tablet completed TAKE 1 & 1/2 (ONE & ONE-HALF) TABLETS BY MOUTH THREE TIMES DAILY - Elizabeth Hollingsworthjanine Cardizem 60 mg tablet completed Take 1 1/2 tablet by mouth three times a day - Elizabeth Mihai magnesium oxide 400 mg (241.3 mg magnesium) [...] tablet active 1 tablet once a day Dolores Alston Colace 100 mg capsule active Take [...] Never smoker Kodak Olea number of grandchildren Alfred Olea smoking status Never smoker Kodak Olea social history E&M S moking History: Juan Daniel ventura has never smoked. Kodak Olea social history reviewed E&M revi ewed - no changes required Kodak Olea smoking status Never smoker Seble Jane kathleen smoking status Never smoker Gloria Mari and [...] Wolff DO smoking status Never smoker Tila Lawson smoking status Never smoker Tila Lawson social [...] Saúl Wolff DO social history reviewed E&M merna romaned - no changes required Saúl Wolff number of grandchildren Saúl Costello O Yvette Mejía smoking/tobacco cess ation, patient education and counseling yes Nery Abbott FAMILY HISTORY Family Member Condition Mother Family History Breleora t Cancer: INSURANCE PROVIDERS Payer name Policy type / Coverage type [place] [employer] party ID A[employer] MEDICARE ADVANTAGE ST 0 003 (HMO POS) Medicare [id number] ADVANCE DIRECTIVES Name Date LIVING WILL ON FILE TREATMENT PLAN Date Name Performer [id number],C,W ill enroll pt in RPM to better monitor her BP BP today: 149/77 P rior BP: 161/90 (06/14/2022) Kodka annapedrito [id number],C,No CP current ly. Kodak [facility] [id number],C,R ecent device check showed AT/AF [place]: 0.0%, % Pacing: RA - 95.0% RV - 8.0%. [facility] [id number],C,Stable Kodak [facility] [id number],C,N o burden seen on remote device check [facility] [id number],C,M ultifactorial, non cardiac etiology, her stress nuc was normal. Kodak annapedrito [id number],C,w ill check nuclear stress test. echo as above Gaby Soriano CORPORATE COMMUNICATIONS ASSOCIATE [id number],C,r uns of AFIB noted on interrogation will start magnesium oxide 40mmg daily and diltaizem 90mg TID Gaby Templetonmarcel CORPORATE COMMUNICATIONS ASSOCIATE [id number],C, pt states that she has been experinecing [...] check carotids and AAA Gaby Soriano NP [id number],C,i nterrogation today 14 recordings AF and HVR. battery good. 50%, normal function will start magnesium oxide 400mg daily and Diltiazem 90mg TID ECHO 05/27/22 at [facility]: EF 60-65%, milkdly iuncreased LV wall thickness. Grade 1 diastolic dysdunction, mild anterior and mild posterior MV leaflet prolapse. trace MR, Trace TR. no pulm htn Gaby Soriano NP [id number],S,i mproves with rest. at baseline per patient. will check echo Alfred Figueroa MD [id number],C,p er last device check, appropriate function noted. Alfred Figueroa MD [id number],C, Sabenton gamboa MD [id number],S,improves with rest. at baseline Natacha Koehler NP Electrophysiology: O rders: C arotid Duplex Bilateral (CPT-07386) Kodak Olea Electrophysiology:no CP s tress test [...] one-half) tablets by mouth three times daily [facility] Electrophysiology: N o burden seen on remote device check [facility] Electrophysiology:normal functio n [facility] Electrophysiology: S table Her updated medication list for this problem includes: Diltiazem Hcl 60 Mg Tablet (Diltiazem hcl) ..... Take 1 & 1/2 (one & one-half) tablets by mouth three times daily [facility] Electrophysiology: H er updated medication list for this problem includes: Cardizem 60 Mg Tablet (Diltiazem hcl) ..... Take 1 1/2 tablet by mouth three times a day [facility] Electrophysiology: S table [facility] Electrophysiology: N o burden seen on remote device check [facility] Electrophysiology:no rmal function A T/AF [place]: 0.0% % Pacing: RA - 97.0% RV - 10.0% [facility] Electrophysiology:he r chest pain is likely musculoskeletol based on the atypical description s tress test normal in 06/2022 [facility] Electrophysiology: B P today: 137/83 P rior BP: 149/77 (09/13/2022) Her updated medication list for this problem includes: Cardizem 60 Mg Tablet (Diltiazem hcl) ..... Take 1 1/2 tablet by mouth three times a day [facility] Electrophysiology:Wi ll enroll pt in RPM to better monitor her BP BP today: 149/77 P rior BP: 161/90 (06/14/2022) [facility] Electrophysiology:No CP currentl y. [facility] Electrophysiology:Re cent device check showed AT/AF [place]: 0.0%, % Pacing: RA - 95.0% RV - 8.0%. [facility] Electrophysiology:Stable Replaced by [facility] Electrophysiology:No burden seen on remote device check Kodak Olea Electrophysiology:Mu ltifactorial, non cardiac etiology, her stress nuc was normal. Kodak Olea Electrophysiology:wi ll check nuclear stress test. echo as above Gaby Templetonmarcel FLORES Electrophysiology:ru ns of AFIB noted on interrogation will start magnesium oxide 40mmg daily and diltaizem 90mg TID Gaby Templetonmarcel FLORES Electrophysiology: p t states that she has [...] and Diltiazem 90mg TID ECHO 05/27/22 at [facility]: EF 60-65%, milkdly iuncreased LV wall thickness. [...] Koehler NP Electrophysiology:s/p BIO DC PPM Saúl Wolff DO Electrophysiology:Sh errol is doing well overall, however, she does complain of SOB worsening since seen in 2019. D evice interrogation shows recurrent episodes of very brief atrial tach, longest 6 seconds, but no sustained arrhythmias. S he does feel brief palpitations, but states they are not associated with SOB. Will check PFTs and PA and lateral CXR. Saúl Wolff Electrophysiology:Di d not respond to Verapamil. N o response to Rythmol C ouldn't tolerate Catapress. D evice interrogation shows recurrent episodes of very brief atrial tach, longest 6 seconds, but no sustained arrhythmias and no afib. Saúl [facility] Electrophysiology: S /p pacemaker. Saúl [facility] Electrophysiology:Di d not respond to Verapamil. N o response to Rythmol and bad taste. C ouldn't tolerate Catapress. symptoms much bedtter with change instress from work. r are breif palpitations last several seconds Saúl [facility] Electrophysiology:No rmal function. Saúl [facility] Electrophysiology - DG faxed 02-02, lo: n o recurrences Saúl [facility] Electrophysiology - DG faxed 02-02, lo: S /p pacemaker. Saúl [facility] Electrophysiology - DG faxed 02-02, lo:Did not respond to Verapamil. n o response to Rythmol and bad taste c ouldn't tolerate Catapress symptoms much bedtter with change instress from work. r are breif palps last several seconds Saúl [facility] Electrophysiology fa xed 09-19, lo: n o recurrences Saúl [facility] Electrophysiology fa xed 09-19, lo: S /p pacemaker. Saúl [facility] Electrophysiology fa xed 09-19, lo:Did not respond to Verapamil. n o response to Rythmol and bad taste c ouldn't tolerate Catapress symptoms much bedtter with change instress from work. rare breif palps last several seconds willing to try coreg after radiation ends in 3-4 months. Will wait until after current surgery. Saúl [facility] Electrophysiology fx ed on 04-15 to pcp, lo: n ot reponsding to Verapamil. n o response to Rythmol and bad taste c ouldn't tolerate Catapress symptoms much bedtter with change instress from work. r are breif palps last several seconds willing to try coreg after radiation ends in 3-4 months [facility] 04-[facility], lo:S/p pacemaker. [facility] Electrophysiology fx ed on 04-15 to pcp, lo:probably related to neurally mediated syncope. No evidence of arrhytthmia on pacemaker at time of diagnostics. No evidence of VT during surgery on 03/24, was likely due to Vpacing. Prior normal cath and normal echo. Saúl [facility] Electrophysiology fa xed 04/08/17bs: n ot reponsding to Verapamil. n o response to Rythmol and bad taste c ouldn't tolerate Catapress symptoms much bedtter with change instress from work. r are breif palps last several seconds willing to try coreg after radiation ends in 3-4 months Dwight Hu CORPORATE COMMUNICATIONS ASSOCIATE EP:no recurrences [facility]ay [facility] DO EP: S /P DDD PPM [facility] EP: n ot reponsding to Verapamil. n o response to Rythmol and bad taste c ouldn't tolerate Catapress symptoms much bedtter with change instress from work. r are breif palps last several months [facility] EP: n ot reponsding to Verapamil. n o response to Rythmol and bad taste D C Rythmol t rial Catapress 0.1mg BID discussed possible AVN RFA [facility] EP:not reponsding to Verapamil. w ill DC and try Rythmol 150 mg TID E KG in 1 week if refractory will try Catapress [facility] EP:S/P DDD PPM [facility] Cardiology [facility] Cardiology:will star t pt on Verapamil CR [...] monitoring) Complete Echo CXR- PA/Lat DLCO - 79223 FRC - 65082 FVC - [id number] HISTORY OF PROCEDURES Procedure Date Procedure Name [...] Saúl Wolff DO INTERROGATION REMOTE </90 D SENIOR STAFF PSYCHOLOGIST REVIEW completed Pacemaker Interrogation, Remote (Prof) Saúl Wolff DO INTERROGATION EVAL REMOTE </90 D 1/2/AGRICULTURE WORKER LEAD P completed ICM Interrogation, Remote (Prof) Saúl [place] DO INTERROGATION EVAL REMOTE </30 D CV MNTR SYS completed ICM Interrogation, Remote (Tech) Saúl [place] DO INTERROGATION EVAL REMOTE </30 D TECH REVIEW completed ICM Interrogation, Remote (Prof) Salú [place] DO INTERROGATION EVAL REMOTE </30 D CV MNTR SYS completed ICM Interrogation, Remote (Tech) Saúl [place] DO INTERROGATION EVAL REMOTE </30 D TECH REVIEW completed Schedule Pacer Check Saúl Beltran cock DO in 1 yr completed Schedule Followup Saúl Solanoc k DO in 1 yr completed EKG Saúl Wolff DO completed ICM Interrogation, Remote (Prof) Saúl [place] DO INTERROGATION EVAL REMOTE </30 D CV MNTR SYS completed ICM Interrogation, Remote (Tech) Saúl [place] DO INTERROGATION EVAL REMOTE </30 D TECH REVIEW completed ICM Interrogation, Remote (Prof) Saúl [place] DO INTERROGATION EVAL REMOTE </30 D CV MNTR SYS completed Pacemaker Interrogation, Remote (Tech) Saúl [place] DO INTERROGATION REMOTE </90 D SENIOR STAFF PSYCHOLOGIST REVIEW completed Pacemaker Interrogation, Remote (Prof) Saúl [place] DO INTERROGATION EVAL REMOTE </90 D 1/2/AGRICULTURE WORKER LEAD P completed ICM Interrogation, Remote (Prof) Saúl [place] DO INTERROGATION EVAL REMOTE </30 D CV MNTR SYS completed ICM Interrogation, Remote (Tech) Saúl [place] DO INTERROGATION EVAL REMOTE </30 D TECH REVIEW completed ICM Interrogation, Remote (Prof) Saúl [place] DO INTERROGATION EVAL REMOTE </30 D CV MNTR SYS completed ICM Interrogation, Remote (Tech) Saúl [place] DO INTERROGATION EVAL REMOTE </30 D TECH REVIEW completed ICM Interrogation, Remote (Prof) Saúl [place] DO INTERROGATION EVAL REMOTE </30 D CV MNTR SYS completed Pacemaker Interrogation, Remote (Tech) Saúl [place] DO INTERROGATION REMOTE </90 D SENIOR STAFF PSYCHOLOGIST REVIEW completed Pacemaker Interrogation, Remote (Prof) Saúl [place] DO INTERROGATION EVAL REMOTE </90 D 1/2/AGRICULTURE WORKER LEAD P completed ICM Interrogation, Remote (Prof) Saúl [place] DO INTERROGATION EVAL REMOTE </30 D CV MNTR SYS completed ICM Interrogation, Remote (Tech) Saúl [place] DO INTERROGATION EVAL REMOTE </30 D TECH REVIEW completed ICM Interrogation, Remote (Prof) Saúl [place] DO INTERROGATION EVAL REMOTE </30 D CV MNTR SYS completed ICM Interrogation, Remote (Tech) Saúl [place] DO INTERROGATION EVAL REMOTE </30 D TECH REVIEW completed ICM Interrogation, Remote (Prof) Saúl [place] DO INTERROGATION EVAL REMOTE </30 D CV MNTR SYS completed Pacemaker Interrogation, Remote (Tech) Saúl [place] DO INTERROGATION REMOTE </90 D SENIOR STAFF PSYCHOLOGIST REVIEW completed Pacemaker Interrogation, Remote (Prof) Saúl [place] DO INTERROGATION EVAL REMOTE </90 D 1/2/AGRICULTURE WORKER LEAD P completed ICM Interrogation, Remote (Prof) Saúl [place] DO INTERROGATION EVAL REMOTE </30 D CV MNTR SYS completed ICM Interrogation, Remote (Tech) Saúl [place] DO INTERROGATION EVAL REMOTE </30 D TECH REVIEW completed ICM Interrogation, Remote (Prof) Saúl [place] DO INTERROGATION EVAL REMOTE </30 D CV MNTR SYS completed ICM Interrogation, Remote (Tech) Saúl [place] DO INTERROGATION EVAL REMOTE </30 D TECH REVIEW completed EKG Saúl [place] DO completed ICM Interrogation, Remote (Prof) Saúl [place] DO INTERROGATION EVAL REMOTE </30 D CV MNTR SYS completed Pacemaker Interrogation, Remote (Tech) Saúl [place] DO INTERROGATION REMOTE </90 D SENIOR STAFF PSYCHOLOGIST REVIEW completed Pacemaker Interrogation, Remote (Prof) Saúl [place] DO INTERROGATION EVAL REMOTE </90 D 1/2/AGRICULTURE WORKER LEAD P completed ICM Interrogation, Remote (Prof) Saúl [place] DO INTERROGATION EVAL REMOTE </30 D CV MNTR SYS completed ICM Interrogation, Remote (Tech) Saúl [place] DO INTERROGATION EVAL REMOTE </30 D TECH REVIEW completed ICM Interrogation, Remote (Prof) Saúl [place] DO INTERROGATION EVAL REMOTE </30 D CV MNTR SYS completed ICM Interrogation, Remote (Tech) Saúl [place] DO INTERROGATION EVAL REMOTE </30 D TECH REVIEW completed ICM Interrogation, Remote (Prof) Saúl [place] DO INTERROGATION EVAL REMOTE </30 D CV MNTR SYS completed ICM Interrogation, Remote (Tech) Saúl [place] DO INTERROGATION EVAL REMOTE </30 D TECH REVIEW completed ICM Interrogation, Remote (Prof) Saúl [place] DO INTERROGATION EVAL REMOTE </30 D CV MNTR SYS completed ICM Interrogation, Remote (Tech) Saúl [place] DO INTERROGATION EVAL REMOTE </30 D TECH REVIEW completed EKG Saúl [place] DO completed SNOMED-CT: [id number] Current Medications Documented Saúl [place] DO completed Schedule Pacer Check Saúl Glas cock DO in 4 months after radiation completed Schedule Followup Saúl Glascoc k DO in 4 months after radiation completed EKG Saúl [place] DO completed SNOMED-CT: [id number] Current Medications Documented Saúl [place] DO completed ICM Interrogation, Remote (Prof) Saúl [place] DO INTERROGATION EVAL REMOTE </30 D CV MNTR SYS completed ICM Interrogation, Remote (Tech) Saúl [place] DO INTERROGATION EVAL REMOTE </30 D TECH REVIEW completed ICM Interrogation, Remote (Prof) Saúl [place] DO INTERROGATION EVAL REMOTE </30 D CV MNTR SYS completed Pacemaker Interrogation, Remote (Tech) Saúl [place] DO INTERROGATION REMOTE </90 D SENIOR STAFF PSYCHOLOGIST REVIEW completed Pacemaker Interrogation, Remote (Prof) Saúl [place] DO INTERROGATION EVAL REMOTE </90 D 1/2/AGRICULTURE WORKER LEAD P completed ICM Interrogation, Remote (Prof) Saúl [place] DO INTERROGATION EVAL REMOTE </30 D CV MNTR SYS completed ICM Interrogation, Remote (Tech) Saúl [place] DO INTERROGATION EVAL REMOTE </30 D TECH REVIEW completed ICM Interrogation, Remote (Prof) Saúl [place] DO INTERROGATION EVAL REMOTE </30 D CV MNTR SYS completed ICM Interrogation, Remote (Tech) Saúl [place] DO INTERROGATION EVAL REMOTE </30 D TECH REVIEW completed ICM Interrogation, Remote (Prof) Saúl [place] DO INTERROGATION EVAL REMOTE </30 D CV MNTR SYS completed Pacemaker Interrogation, Remote (Tech) Saúl [place] DO INTERROGATION REMOTE </90 D SENIOR STAFF PSYCHOLOGIST REVIEW completed Pacemaker Interrogation, Remote (Prof) Saúl [place] DO INTERROGATION EVAL REMOTE </90 D 1/2/AGRICULTURE WORKER LEAD P completed EKG Saúl [place] DO completed SNOMED-CT: [id number] Current Medications Documented Saúl Beltrancock DO completed ICM Interrogation, Remote (Prof) Saúl [place] DO INTERROGATION EVAL REMOTE </30 D CV MNTR SYS completed ICM Interrogation, Remote (Tech) Saúl [place] DO INTERROGATION EVAL REMOTE </30 D TECH REVIEW completed ICM Interrogation, Remote (Prof) Saúl [place] DO INTERROGATION EVAL REMOTE </30 D CV MNTR SYS completed Pacemaker Interrogation, Remote (Tech) Saúl [place] DO INTERROGATION REMOTE </90 D SENIOR STAFF PSYCHOLOGIST REVIEW completed Pacemaker Interrogation, Remote (Prof) Saúl [place] DO INTERROGATION EVAL REMOTE </90 D 1/2/AGRICULTURE WORKER LEAD P completed SNOMED-CT: [id number] Current Medications Documented Saúl [place] DO completed EKG Saúl [place] DO completed ICM Interrogation, Remote (Prof) Saúl [place] DO INTERROGATION EVAL REMOTE </30 D CV MNTR SYS completed ICM Interrogation, Remote (Tech) Saúl [place] DO INTERROGATION EVAL REMOTE </30 D TECH REVIEW completed ICM Interrogation, Remote (Prof) Saúl [place] DO INTERROGATION EVAL REMOTE </30 D CV MNTR SYS completed ICM Interrogation, Remote (Tech) Saúl [place] DO INTERROGATION EVAL REMOTE </30 D TECH REVIEW completed ICM Interrogation, Remote (Prof) Saúl [place] DO INTERROGATION EVAL REMOTE </30 D CV MNTR SYS completed Pacemaker Interrogation, Remote (Tech) Saúl [place] DO INTERROGATION REMOTE </90 D SENIOR STAFF PSYCHOLOGIST REVIEW completed Pacemaker Interrogation, Remote (Prof) Saúl [place] DO INTERROGATION EVAL REMOTE </90 D 1/2/AGRICULTURE WORKER LEAD P completed EKG Saúl [place] DO completed SNOMED-CT: [id number] Smoking Cessation Counseling Saúl [place] DO completed EKG Saúl [place] DO completed SNOMED-CT: [id number] Current Medications Documented Saúl [place] DO completed ICM Interrogation, Remote (Prof) Saúl [place] DO INTERROGATION EVAL REMOTE </30 D CV MNTR SYS completed ICM Interrogation, Remote (Tech) Saúl [place] DO INTERROGATION EVAL REMOTE </30 D TECH REVIEW completed ICM Interrogation, Remote (Prof) Saúl [place] DO INTERROGATION EVAL REMOTE </30 D CV MNTR SYS completed ICM Interrogation, Remote (Tech) Saúl [place] DO INTERROGATION EVAL REMOTE </30 D TECH REVIEW completed ICM Interrogation, Remote (Prof) Saúl [place]an[place] DO INTERROGATION EVAL REMOTE </30 D CV MNTR SYS completed Pacemaker Interrogation, Remote (Tech) Saúl Beltrancock DO INTERROGATION REMOTE </90 D SENIOR STAFF PSYCHOLOGIST REVIEW completed Pacemaker Interrogation, Remote (Prof) Saúl Beltrancock DO INTERROGATION EVAL REMOTE </90 D 1/2/AGRICULTURE WORKER LEAD P completed ICM Interrogation, Remote (Prof) Saúl Solanock DO INTERROGATION EVAL REMOTE </30 D CV MNTR SYS completed ICM Interrogation, Remote (Tech) Saúl [place] DO INTERROGATION EVAL REMOTE </30 D TECH REVIEW completed SNOMED-CT: [id number] Smoking Cessation Counseling Saúl Wolff DO completed EKG Saúl Wolff DO completed SNOMED-CT: [id number] Current Medications Documented Saúl Wolff DO completed ICM Interrogation, Remote (Prof) Saúl Wolff DO INTERROGATION EVAL REMOTE </30 D CV MNTR SYS completed ICM Interrogation, Remote (Tech) Saúl Solanock DO INTERROGATION EVAL REMOTE </30 D TECH REVIEW completed
--- OUTSIDE RECORDS SUMMARY | 2024-12-25 14:54 | XMS_ITS | Clinical Summary ---
Author Organization [facility] Address [address] [place] [address] Care Team Providers Care Personnel Consultant Name Role Phone Babar Steiner MD Primary Care Provider Source Comments [facility],non-owned Affiliates and Associated Physician Practices is amultiple site organization consisting of ambulatory clinics and hospital sitesin [place], [place], [place] and [place]. This disclosure is being madepursuant to the Care Everywhere program and may not contain all information available regarding this patient. 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 Gender Identity Not on file Sexual Orientation [...] VACCINE ( - 2023-2 5 season) 2024 DEPRESSION SCREENING 08/25/2024 INFLUENZA VACCINE (Season Ended) 2025 Respiratory Syncytial Virus (RSV) Vaccine Pt: or [...] to complete this topic MENINGOCOCCAL (Group B) VACC INE SHARED DECISION-MAKING Aged Out No longer eligibl e based on patient's age to complete this topic MENINGOCOCCAL GROUPS A/C/Y/W VACCINE Aged Out No longer eligible b ased on patient's age to complete this topic Care Teams Personnel Consultant Relationship Specialty Start Date End Date Babar Steiner MD [address] [facility] [address] [place] [id number] PCP - General 09/24/17
== END 2024-12-24 15:32 | disposition home or self-care (01) ==
LOC: ANHIMG 15:41
PROVIDERS: PCP Family Medicine; Visit Provider Internal Medicine Hematology & Oncology
DX: Z12.31 Encounter for screening mammogram for malignant neoplasm of breast (principal)
CPT/HCPCS: 77063; 77067

== ENCOUNTER 2025-02-15 07:12 | Outpatient (CLI) | payer MEDICARE, SELFPAY ==
[2025-02-15 08:44] LABS: Basophils Absolute Auto 0.1 K/mm3 (0.0-0.1); Basophils Percent Auto 1.2 % (0.2-1.2); Eosinophils Absolute Auto 0.1 K/mm3 (0-0.3); Eosinophils Percent Auto 3.2 % (0-4.4); Hematocrit 39.1 % (37.0-47.0); Hemoglobin 12.8 g/dL (12.0-15.0); Immature Granulocyte Absolute 0.01 K/mm3 (0.00-0.031); Immature Granulocyte Percent A 0.2 % (0-0.5); Lymphocytes Absolute Auto 1.75 K/mm3 (0.9-3.2); Lymphocytes Percent Auto 43.4 % (18.3-44.2); Mean Corpuscular HGB Conc 32.7 g/dl (32-36); Mean Corpuscular Hemoglobin 31.4 pg (26-34); Mean Corpuscular Volume 96.1 fl (80-100); Mean Platelet Volume 10.2 fl (7.4-10.4); Monocytes Absolute Auto 0.3 K/mm3 (0.1-0.6); Monocytes Percent Auto 8.4 % (2.6-8.5); Neutrophils Absolute Auto 1.8 K/mm3 (1.3-6.7); Neutrophils Percent Auto 43.6 % (45.5-73.1); Platelet Count Result 227 k/mm3 (150-375); Red Blood Count 4.07 M/mm3 (4.2-5.4); Red Cell Distribution Width 12.5 % (11.5-14.5)
[2025-02-15 08:58] LABS: Alanine Aminotransferase 19 U/L (6-35); Albumin Level 4.3 g/dL (3.5-5.1); Alkaline Phosphatase 68 U/L (38-126); Anion Gap 9 mmol/L (4-12); Aspartate Amino Transferase 34 U/L (14-36); Bilirubin,Total 0.5 mg/dL (0.2-1.3); Blood Urea Nitrogen 15 mg/dL (7-17); Calcium 9.6 mg/dL (8.4-10.2); Carbon Dioxide 26 mmol/L (22-30); Chloride 106 mmol/L (98-107); Cholesterol 182 mg/dL (0-200); Estimated Glomerular Filt Rate > 60; Glucose 88 mg/dL (65-110); HDL Direct 74 mg/dL; Magnesium 2.1 mg/dL (1.6-2.3); Potassium 4.3 mmol/L (3.4-5.0); Sodium 141 mmol/L (137-145); Total Protein 7.1 g/dL (6.3-8.2); Triglycerides 85 mg/dL (<150)
[2025-02-15 09:09] LABS: LDL Cholesterol Direct 72 mg/dL
[2025-02-15 10:43] LABS: Vitamin D 25 Hydroxy 47.6 ng/mL
== END 2025-02-15 07:13 | disposition home or self-care (01) ==
PROVIDERS: PCP Family Medicine; Visit Provider Family Medicine
DX: E78.5 Hyperlipidemia, unspecified (principal); I48.92 Unspecified atrial flutter; R53.83 Other fatigue; Z79.899 Other long term (current) drug therapy; Z85.3 Personal history of malignant neoplasm of breast; Z13.21 Encounter for screening for nutritional disorder
CPT/HCPCS: 36415; 80053; 80061; 82306; 82607; 83735; 85025

== ENCOUNTER 2025-08-18 00:43 | Emergency (ER) | payer MEDICARE, SELFPAY ==
--- NOTE | ~2025-08-18 | CT_ITS ---
EXAMINATION: CT abdomen pelvis w con DATE: 08/18/2025 07:47 INDICATION: Left upper quadrant and lower quadrant pain. TECHNIQUE: Computed tomography (CT) of the abdomen and pelvis was performed with intravenous contrast. The dose-length product was 214.66 mGy-cm. Automated exposure control and iterative reconstruction technique were employed. COMPARISON: None. FINDINGS: Heart size normal. No significant pleural or pericardial effusion. There is diffuse abnormal thickening of the descending colon, suspicious for colitis, differential diagnosis includes infection, inflammatory bowel disease and ischemia. Fatty infiltration of the liver. The spleen, pancreas, adrenal glands and kidneys are unremarkable. Gallbladder is present. Colonic diverticulosis without evidence for diverticulitis. Trace free fluid in the pelvis. Mild osteoarthritis of the hips. Moderate-severe lumbar spondylosis with levoscoliosis. IMPRESSION: 1. Abnormal subsegmental thickening of the descending colon, suspicious for colitis. Differential diagnosis includes infection, inflammatory bowel disease and ischemia. Reviewed, dictated and finalized at location O. IPITATOR IMPRESSION: 1. Abnormal subsegmental thickening of the descending colon, suspicious for col itis. Differential diagnosis includes infection, inflammatory bowel disease and ischemia.
[2025-08-18 01:03] VITALS: BP 135/59; PULSE 69; RESP 18; TEMP 36.6; O2SAT 94
[2025-08-18 06:15] VITALS: BP 142/68; PULSE 65; RESP 16; O2SAT 100
[2025-08-18 06:36] LABS: Hematocrit 37.6 % (37.0-47.0); Hemoglobin 12.5 g/dL (12.0-15.0); Immature Granulocyte Percent A 0.3 % (0-0.5); Lymphocytes Absolute Auto 0.79 K/mm3 (0.9-3.2); Mean Corpuscular HGB Conc 33.2 g/dl (32-36); Mean Corpuscular Hemoglobin 31.3 pg (26-34); Mean Corpuscular Volume 94.0 fl (80-100); Nucleated Red Blood Cells Absolute Auto 0.000 K/mm3 (0.0-0.012); Nucleated Red Blood Cells Perc 0.0 % (0.0-0.2); Platelet Count Result 234 k/mm3 (150-375); Red Blood Count 4.00 M/mm3 (4.2-5.4); White Blood Count 10.1 K/mm3 (4.5-10.0)
[2025-08-18 06:48] LABS: Alanine Aminotransferase 22 U/L (6-35); Albumin Level 4.3 g/dL (3.5-5.1); Alkaline Phosphatase 102 U/L (38-126); Anion Gap 6 mmol/L (4-12); Aspartate Amino Transferase 38 U/L (14-36); Bilirubin,Total 0.5 mg/dL (0.2-1.3); Blood Urea Nitrogen 14 mg/dL (7-17); Calcium 9.6 mg/dL (8.4-10.2); Carbon Dioxide 25 mmol/L (22-30); Chloride 107 mmol/L (98-107); Estimated Glomerular Filt Rate > 60; Glucose 118 mg/dL (65-110); Lipase 57 U/L (23-300); Potassium 4.1 mmol/L (3.4-5.0); Sodium 138 mmol/L (137-145); Total Protein 7.1 g/dL (6.3-8.2)
[2025-08-18] MEDS: SODIUM CHLORIDE 0.9% IV 1,000 ML 999 ML IV CONT (09:19)
[2025-08-18] MEDS: MORPHINE SULFATE (*CRX) 4 MG/ML INJ 2 MG IV PUSH (09:21)
[2025-08-18] MEDS: ONDANSETRON INJ 4 MG/2 ML VIAL IV PUSH (09:21)
[2025-08-18 09:57] VITALS: BP 140/71; PULSE 65; RESP 15; O2SAT 96
--- NOTE | 2025-08-18 10:48 | ED.ABDPAIN ---
HPI - Abdominal Pain General Chief Complaint: Abdominal Pain Stated Complaint: stomach cramps/bloody diarrhea Time Seen by Provider: 08/18/25 07:05 History of Present Illness HPI narrative: Patient is a 70-year-old female who presents ER with abdominal cramping and diarrhea. The diarrhea has developed bright red blood within it. She is not on a blood thinner. She did get some lightheadedness with cramping at 1 point. No fevers or chills. No known sick contacts. She reports she is having a diarrhea episode every 30 minutes that is decreasing in volume with still has bright red blood. Related Data Home Medications ?Medication ?Instructions ?Recorded ?Confirmed ?Last Taken ?Type aspirin 81 mg tablet,delayed 81 mg PO DAILY 09/01/19 10/10/22 Unknown History release (Adult Aspirin Regimen) [id number] 8 mg-folic 400 1 tablet PO DAILY 09/05/20 10/10/22 Unknown History mcg-K 50 mcg-lutein 300 mcg tablet (Centrum Silver Women) diltiazem HCl 90 mg tablet 90 mg PO TID 10/10/22 10/10/22 Unknown History Allergies Allergy/AdvReac Type Severity Reaction Status Date / Time No Known Allergies Allergy Verified 02/03/24 06:55 Review of Systems Review of Systems: All systems reviewed & are unremarkable except as noted in HPI and below Constitutional: Constitutional: Reports no additional constitutional complaints Cardiovascular: Cardiovascular: Reports no additional cardiovascular complaints Respiratory: Respiratory: Reports no additional respiratory complaints Gastrointestinal: Gastrointestinal: Reports no additional gastrointestinal complaints Genitourinary: Genitourinary: Reports no additional female genitourinary complaints [facility] Past Medical History Medical History Screening for colon cancer Postmenopausal Family History Family History Sibling Patient's brother is in good health Mother Family history of malignant neoplasm of breast in first degree relative Patient's mother is Social History Social History Smoking status: Never smoker Second hand tobacco smoke exposure: No Alcohol intake: current Alcohol use details: 4-5 times yearly Substance use: never Lack of Transportation: No Lack of Food: Never True Current Housing: I Have Housing Concerned About Future Housing: No Difficulty Paying Gas/Electric Bills: No Difficulty Paying for Meds: No Currently Unemployed: No Education: Bachelor's Degree Difficulty w/ Childcare or Family Care: No Exam Narrative: GENERAL: Well-appearing, well-nourished, and in no acute distress. HEAD: Normocephalic, atraumatic. ENT: Mucous membranes moist. CHEST: Clear to auscultation. No respiratory distress. HEART: Regular rate and rhythm. Normal peripheral pulses. ABDOMEN: Soft, mild tenderness left abdomen, nondistended, normal active bowel sounds. EXTREMITIES: Normal range of motion. No edema. SKIN: Warm, dry, no rash. NEURO: Alert and oriented x3. PSYCH: Normal mood and affect. Course Course Emergency Course: No hypotension. Hemoglobin normal. Patient had blood drawn after prolonged stay in ER so there is significant hemorrhage I did expect to be seeing some evidence of anemia. CT with colitis and it is felt that this is hemorrhagic in nature. Will give oral ciprofloxacin for home. Also will give Zofran for home. Patient has been hydrated and is up and ambulatory without issue. Vital Signs Vital signs: Vital Signs Temperature 97.9 F 08/18/25 01:03 Pulse Rate 69 08/18/25 01:03 Respiratory Rate 18 08/18/25 01:03 Blood Pressure 135/59 L 08/18/25 01:03 Pulse Oximetry 94 08/18/25 01:03 Oxygen Delivery Room Air 08/18/25 01:03 Temperature 97.9 F 08/18/25 01:03 Pulse Rate 65 08/18/25 09:57 Respiratory Rate 15 08/18/25 09:57 Blood Pressure 140/71 08/18/25 09:57 Pulse Oximetry 96 08/18/25 09:57 Oxygen Delivery Room Air 08/18/25 01:03 MDM Differential Diagnosis Differential Diagnosis: Upper GI bleed, lower GI bleed, diverticulitis, colitis, AAA Lab Data [facility] Lab Attestation statement: I personally reviewed the patient's lab results. 08/18/25 06:31 08/18/25 06:30 Labs: Lab Results 08/18/25 08/18/25 08/18/25 Range/Units 06:30 06:31 07:47 WBC 10.1 H (4.5-10.0) K/mm3 RBC 4.00 L (4.2-5.4) M/mm3 Hgb 12.5 (12.0-15.0) g/dL Hct 37.6 (37.0-47.0) % MCV 94.0 (80-100) fl MCH 31.3 (26-34) pg MCHC 33.2 (32-36) g/dl RDW 12.2 (11.5-14.5) % Plt Count 234 (150-375) k/mm3 MPV 9.7 (7.4-10.4) fl Immature Gran % (Auto) 0.3 (0-0.5) % Neut % (Auto) 85.0 H (45.5-73.1) % Lymph % (Auto) 7.8 L (18.3-44.2) % [place] % (Auto) 6.5 (2.6-8.5) % Eos % (Auto) 0.1 (0-4.4) % Baso % (Auto) 0.3 (0.2-1.2) % Lymph # (Auto) 0.79 L (0.9-3.2) K/mm3 [place] # (Auto) 0.7 H (0.1-0.6) K/mm3 Eos # (Auto) 0.0 (0-0.3) K/mm3 Baso # (Auto) 0.0 (0.0-0.1) K/mm3 Abs Immat Gran (auto) 0.03 (0.00-0.031) K/mm3 Absolute Neuts (auto) 8.6 H (1.3-6.7) K/mm3 Absolute Nucleated RBC 0.000 (0.0-0.012) K/mm3 Nucleated RBC % 0.0 (0.0-0.2) % Sodium 138 (137-145) mmol/L Potassium 4.1 (3.4-5.0) mmol/L Chloride 107 (98-107) mmol/L Carbon Dioxide 25 (22-30) mmol/L Anion Gap 6 (4-12) mmol/L BUN 14 (7-17) mg/dL Creatinine 0.73 (0.7-1.0) mg/dL Estim Creat Clear Calc Not Reportable Estimated GFR > 60 (59 - ) Glucose 118 H (65-110) mg/dL Lactic Acid (0.7-2.0) mmol/L Calcium 9.6 (8.4-10.2) mg/dL Total Bilirubin 0.5 (0.2-1.3) mg/dL AST 38 H (14-36) U/L ALT 22 (6-35) U/L Alkaline Phosphatase 102 (38-126) U/L Total Protein 7.1 (6.3-8.2) g/dL Albumin 4.3 (3.5-5.1) g/dL Lipase 57 (23-300) U/L Urine Color Yellow (Yellow) Urine Appearance Clear (Clear) Urine pH 6.5 (5.0-9.0) Ur Specific [place] > 1.045 H (1.001-1.035) Urine Protein Negative (Negative) mg/dL Urine Glucose (UA) Negative (Negative) mg/dL Urine Ketones Negative (Negative) mg/dL Ur Blood (Man) Negative (Negative) Urine Nitrate Negative (Negative) Urine Bilirubin Negative (Negative) Urine Urobilinogen 0.2 (<2.0) mg/dL Leukocyte Esterase Rfl Negative (Negative) NADYA/UL 12/25/25 Range/Units 09:55 WBC (4.5-10.0) K/mm3 RBC (4.2-5.4) M/mm3 Hgb (12.0-15.0) g/dL Hct (37.0-47.0) % MCV (80-100) fl MCH (26-34) pg MCHC (32-36) g/dl RDW (11.5-14.5) % Plt Count (150-375) k/mm3 MPV (7.4-10.4) fl Immature Gran % (Auto) (0-0.5) % Neut % (Auto) (45.5-73.1) % Lymph % (Auto) (18.3-44.2) % [place] % (Auto) (2.6-8.5) % Eos % (Auto) (0-4.4) % Baso % (Auto) (0.2-1.2) % Lymph # (Auto) (0.9-3.2) K/mm3 [place] # (Auto) (0.1-0.6) K/mm3 Eos # (Auto) (0-0.3) K/mm3 Baso # (Auto) (0.0-0.1) K/mm3 Abs Immat Gran (auto) (0.00-0.031) K/mm3 Absolute Neuts (auto) (1.3-6.7) K/mm3 Absolute Nucleated RBC (0.0-0.012) K/mm3 Nucleated RBC % (0.0-0.2) % Sodium (137-145) mmol/L Potassium (3.4-5.0) mmol/L Chloride (98-107) mmol/L Carbon Dioxide (22-30) mmol/L Anion Gap (4-12) mmol/L BUN (7-17) mg/dL Creatinine (0.7-1.0) mg/dL Estim Creat Clear Calc Estimated GFR (59 - ) Glucose (65-110) mg/dL Lactic Acid 0.6 L (0.7-2.0) mmol/L Calcium (8.4-10.2) mg/dL Total Bilirubin (0.2-1.3) mg/dL AST (14-36) U/L ALT (6-35) U/L Alkaline Phosphatase (38-126) U/L Total Protein (6.3-8.2) g/dL Albumin (3.5-5.1) g/dL Lipase (23-300) U/L Urine Color (Yellow) Urine Appearance (Clear) Urine pH (5.0-9.0) Ur Specific [place] (1.001-1.035) Urine Protein (Negative) mg/dL Urine Glucose (UA) (Negative) mg/dL Urine Ketones (Negative) mg/dL Ur Blood (Man) (Negative) Urine Nitrate (Negative) Urine Bilirubin (Negative) Urine Urobilinogen (<2.0) mg/dL Leukocyte Esterase Rfl (Negative) NADYA/UL Imaging Data Radiologist's impression: ITS Impressions Abdomen/Pelvis CT 08/18/25 09:01 IMPRESSION: 1. Abnormal subsegmental thickening of the descending colon, suspicious for colitis. Differential diagnosis includes infection, inflammatory bowel disease and ischemia. Discharge Plan Discharge Clinical Impression: Colitis Patient Disposition: Home Condition: Stable Instructions: Antibiotic Form, Colitis (ED) Additional Instructions: Please drink plenty of fluids at home. Return to the emergency department if you develop high fevers, have persistent severe abdominal pain, or have worsening bloody stools , as these could be signs of a more serious medical emergency. Return to the emergency department if you are unable to keep down liquids because of severe nausea/vomiting. Patient Language: Citizen Of [place] Prescriptions: New ciprofloxacin HCl 500 mg tablet 500 mg PO Q12H Qty: 10 0RF ondansetron 4 mg tablet,disintegrating 4 mg PO Q6H PRN (Reason: nausea and vomiting) Qty: 10 0RF No Action Centrum Silver Women 8 mg iron-400 mcg-300 mcg tablet 1 tablet PO DAILY diltiazem HCl 90 mg tablet 90 mg PO TID dicyclomine 10 mg capsule 10 mg PO DAILY PRN (Reason: irritable bowel syndrome) Qty: 30 1RF aspirin [Adult Aspirin Regimen] 81 mg tablet,delayed release (DR/EC) 81 mg PO DAILY atorvastatin 10 mg tablet See Rx Instructions .ROUTE .COMPLEX Qty: 90 1RF Dose Instruction: Take 1 tablet by mouth once daily Rx Instructions: Take 1 tablet by mouth once daily magnesium gluconate 27 mg magnesium (500 mg) tablet See Rx Instructions .ROUTE .COMPLEX Qty: 90 1RF Dose Instruction: Take 1 tablet by mouth once daily Rx Instructions: Take 1 tablet by mouth once daily Follow-up/Referrals: Darwin Bond MD [Primary Care Provider, Family Practice] - 1 Week
[2025-08-18 10:50] LABS: Add Urine Microscopic? NO; Appearance Urine Clear (Clear); Glucose Urine UA Negative (Negative); Leukocyte Esterase Ur Negative LEU/UL (Negative); Nitrate Urine Negative (Negative); Specific Grav Ur > 1.045 (1.001-1.035)
== END 2025-08-18 11:29 | disposition home or self-care (01) ==
PROVIDERS: Emergency Medicine; Emergency Provider Emergency Medicine; PCP Family Medicine
DX: K52.9 Noninfective gastroenteritis and colitis, unspecified (principal)
CPT/HCPCS: 36415; 74177; 80053; 81003; 83605; 83690; 85025; 96361; 96374; 96375; 99284; J2270; J2405; J7030; Q9967